=== PATIENT | male | born 1980 | race Caucasian/White ===

== ENCOUNTER → 2016-10-07 | Outpatient (CLI) | payer BC | LOC: MW.CHFP 09:14 | PROVIDERS: ATTEND Nurse Practitioner Family | DX: Z00.00 Encounter for general adult medical examination without abnormal findings (principal); M10.9 Gout, unspecified; R35.1 Nocturia; R19.7 Diarrhea, unspecified; G47.00 Insomnia, unspecified; R31.29 Other microscopic hematuria; Z98.890 Other specified postprocedural states | CPT/HCPCS: 36415; 84550 ==

== ENCOUNTER 2017-08-18 07:25 | Observation (INO) | payer BC ==
[~2017-08-18 07:25] MED LIST: Lactated Ringers 1,000 ML IV SCH
[2017-08-18] MEDS ORDERED: Oxymetazoline 0.05% Nasal Spray 15 ML Bottle ONE (07:36)
[2017-08-18] MEDS ORDERED: EPINEPHrine 1 MG/ML SDV ONE (07:36)
--- NOTE | 2017-08-18 08:09 | PCM.HPR ---
H & P Addendum review - H & P Addendum Review Date of Original H & P: 07/26/17 Date Reviewed: 08/18/17 Time Reviewed: 07:50 Patient was Examined: No Changes
[2017-08-18] MEDS ORDERED: fentaNYL 100 MCG/2 ML SDV ONE ×2 (08:36→10:25)
[2017-08-18] MEDS ORDERED: Propofol 200 MG/20 ML SDV ONE ×2 (08:36→09:50)
[2017-08-18] MEDS ORDERED: Lidocaine 2% 5 ML SDV ONE (08:36)
[2017-08-18] MEDS ORDERED: Midazolam 1 MG/ML 2 ML SDV ONE (08:36)
[2017-08-18] MEDS ORDERED: fentaNYL 250 MCG/5 ML SDV ONE (08:36)
[2017-08-18] MEDS ORDERED: Ondansetron 4 MG/2 ML SDV ONE (08:37)
[2017-08-18] MEDS ORDERED: Dexamethasone 4 MG/ML 5 ML MDV ONE (08:37)
--- NOTE | 2017-08-18 08:42 | PCM.PREANE ---
Preanesthetic Assessment - Procedure Proposed Procedure: Tonsillectomy - Anesthesia/Transfusion/Family Hx Anesthesia History: Prior Anesthesia Without Reaction Other Type of Anesthesia Reaction Comment: Denies any problem with 1 prior anesthesia Family History of Anesthesia Reaction: No Transfusion History: No Prior Transfusion(s) Intubation History: Unknown - Review of Systems General: No Symptoms Pulmonary: Other (breathing effects from hypertrophic tonsils) Cardiovascular: No Symptoms Gastrointestinal: No Symptoms Neurological: No Symptoms Other: Reports: None - Physical Assessment NPO Status Date: 08/17/17 NPO Status Time: 22:00 O2 Sat by Pulse Oximetry: 93 Respiratory Rate: 16 Vital Signs: Last Vital Signs Temp 99.0 F 08/18/17 07:30 Pulse 99 08/18/17 07:30 Resp 16 08/18/17 07:30 BP 168/88 H 08/18/17 07:30 Pulse Ox 93 L 08/18/17 07:30 Height: 5 ft 10 in Weight: 215 lb ASA Class: 2 Mental Status: Alert & Oriented x3 Airway Class: Mallampati = 1 Dentition: Reports: Normal Dentition Thyro-Mental Finger Breadths: 3 Mouth Opening Finger Breadths: 3 ROM/Head Extension: Full Lungs: Clear to Auscultation, Normal Respiratory Effort Cardiovascular: Regular Rate, Regular Rhythm, No Murmurs - Allergies Allergies/Adverse Reactions: Allergies Allergy/AdvReac Type Severity Reaction Status Date / Time diphenhydramine HCl Allergy Hives Verified 08/12/17 15:54 [From Benadryl] Penicillins Allergy Hives Verified 08/12/17 15:54 - Blood Blood Available: No Product(s) Available: None - Anesthesia Plan Pre-Op Medication Ordered: None - Acknowledgements Anesthesia Type Planned: General Anesthesia Pt an Appropriate Candidate for the Planned Anesthesia: Yes Alternatives and Risks of Anesthesia Discussed w Pt/Guardian: Yes Pt/Guardian Understands and Agrees with Anesthesia Plan: Yes PreAnesthesia Questionnaire - Past Health History Medical/Surgical History: Denies Medical/Surgical History HEENT History: Reports: Other (See Below) Other HEENT History: wears glasses Gastrointestinal History: Reports: Chronic Diarrhea, GERD Musculoskeletal History: Reports: Gout Psychiatric History: Reports: Anxiety Endocrine/Metabolic History: Reports: Obesity/BMI 30+ - Past Surgical History GI Surgical History: Reports: Cholecystectomy - SUBSTANCE USE Smoking Status *Q: Former Smoker Tobacco Use Within Last Twelve Months: No Second Hand Smoke Exposure: No Days Per Week of Alcohol Use: 0 Number of Drinks Per Day: 0 Total Drinks Per Week: 0 Recreational Drug Use History: No - HOME MEDS Home Medications: Home Meds Omeprazole Magnesium [Prilosec Otc] 20 mg PO DAILY 10/10/13 [History] Allopurinol [Zyloprim] 300 mg PO DAILY 08/12/17 [History] - CURRENT (IN HOUSE) MEDS Current Meds: Current Medications Lactated Ringer's (Ringers, Lactated) 1,000 mls @ 125 mls/hr IV ASDIRECTED [facility] Last Admin: 08/18/17 08:07 Dose: 125 mls/hr Discontinued Medications Epinephrine HCl (Adrenalin) Confirm Administered Dose 1 mg .ROUTE .STK-MED ONE Stop: 08/18/17 07:37 Oxymetazoline HCl (Afrin Original 0.05% Nasal [place]) Confirm Administered Dose 15 ml .ROUTE .STK-MED ONE Stop: 08/18/17 07:37
[2017-08-18] MEDS ORDERED: HYDROmorphone 2 MG/ML SDV ONE (09:23)
--- NOTE | 2017-08-18 09:49 | PCM.OPNOTE ---
- General Post-Op/Procedure Note Condition: Good Free Text/Narrative:: Preoperative Diagnosis: Snoring ,sleep disordered breathing, tonsillar hypertrophy Postoperative Diagnosis:Snoring ,sleep disordered breathing, tonsillar hypertrophy Procedure: Bilateral tonsillectomy Surgeon: Catrina Landaverde MD Anesthesia: GA Anesthesiologist: Tripp Fuentes CRNA Date of procedure: 08/18/2017 Indications: Snoring ,sleep disordered breathing, tonsillar hypertrophy Findings: Bilateral Gr 4 tonsils prolapsing into hypopharynx ++ Operation Details: An informed consent was obtained. A time out was performed and the patient was brought back to the operating room. General anesthesia was administered with an endotracheal tube. The table was turned 90 away from the anesthesia cart. Patient was appropriately positioned on the operating table. An appropriately sized Caesar Landry mouth gag was positioned and suspended from a Patterson stand. The right tonsil was grasped with a Aiden Brown tonsil holding forceps, upper pole dissected with bipolar forceps at setting of 10 [place]. The tonsillar fossa was packed with an oxymetazoline 0.05% soaked 2 x 2 gauze. The left tonsil was then similarly dissected and fossa packed with an oxymetazoline 0.05% soaked 2 x 2 gauze. Hemostasis was achieved bilaterally with the bipolar cautery at a setting of 10 W. Bilateral fossae were irrigated with warm saline and hemostasis was ensured. Postnasal space was suctioned clear. This concluded the procedure. Mouth gag was removed the oral cavity was inspected. Lips gums and teeth were intact. Lubricating jelly was applied to the lips. The patient was turned over to the anesthesiologist for recovery. Specimens: Bilateral tonsils IV fluids: 1200 ml Blood loss : 15 ml Blood products: nil Disposition: PACU for recovery Follow up: In 1 week
[2017-08-18] MEDS ORDERED: HYDROmorphone 2 MG/ML Syringe IVPUSH ONE (10:28)
[2017-08-18] MEDS ORDERED: oxyCODONE 5 MG Tab PO PRN ×2 (11:14→16:32)
[2017-08-18] MEDS ORDERED: Acetaminophen 1,000 MG in Premix Bag 1 BAG IV ONE (11:14)
[2017-08-18] MEDS ORDERED: Ibuprofen Susp 100 MG/5 ML 10 ML UD Cup PO SCH ×2 (11:15→22:00)
[2017-08-18] MEDS ORDERED: Naloxone 0.4 MG/ML Syringe ONE (11:28)
[2017-08-18] MEDS: fentaNYL 100 MCG/2 ML SDV IVPUSH PRN ×2 (12:19→12:34)
--- NOTE | 2017-08-18 12:39 | PCM.POSTAN ---
POST ANESTHESIA ASSESSMENT - MENTAL STATUS Mental Status: Alert, Oriented Free Text/Narrative:: s/p large tonsils removal; suggested he may be "sore" due to the surface area involved. - VITAL SIGNS Pulse Rate: 64 SaO2: 96 (NC O2 at 5l/m) Resp Rate: 13 Blood Pressure: 150/86 - RESPIRATORY Respiratory Status: Respiratory Rate WNL, Airway Patent, O2 Saturation Stable - CARDIOVASCULAR CV Status: Pulse Rate WNL, Blood Pressure Stable - GASTROINTESTINAL GI Status: No Symptoms - PAIN Pain Score: 5 (w/narcotic assist; mild pruritis) - POST OP HYDRATION Hydration Status: Adequate & Stable - OBSERVATIONS Free Text/Narrative:: Reassess for O2 sat and comfort level. may need Oxygen supplement for awhile in Phase II.
--- NOTE | 2017-08-18 16:36 | PCM.SN ---
- Free Text/Narrative Note: The patient was maintianing saturation to 92% RA and 88% while asleep. His baseline saturation was also at 93% on admission ( I was made aware after surgery while rounding post operatively) O/E- patient awake and conscious Saturations 93% RA and 97 % on deep breathing Rest sats - stable Pain - controlled Plan: Case discussed with Dr Ayala and Dr Etienne Will keep overnight for observation Continuous pulse oximetry Analgesia CXR Discussed with patient Will need investigation for baseline low SpO2 by PCP
[2017-08-18] MEDS ORDERED: Ibuprofen 400 MG Tab PO SCH (16:45)
[2017-08-18] MEDS: Acetaminophen 325 MG Tab PO SCH ×2 (17:52→22:16)
[2017-08-18] MEDS: Ibuprofen 400 MG Tab PO SCH (21:04)
[2017-08-19] MEDS: Acetaminophen 325 MG Tab PO SCH ×2 (04:21→10:10)
[2017-08-19] MEDS: Ibuprofen 400 MG Tab PO SCH (06:14)
--- NOTE | 2017-08-19 07:34 | PCM48HPAN ---
Post Anesthesia Note - EVALUATION WITHIN 48HRS OF ANESTHETIC Vital Signs in Normal Range: Yes Patient Participated in Evaluation: Yes Respiratory Function Stable: Yes Airway Patent: Yes Cardiovascular Function Stable: Yes Hydration Status Stable: Yes Pain Control Satisfactory: Yes Nausea and Vomiting Control Satisfactory: Yes Mental Status Recovered: Yes Pulse Rate: 64 Resp Rate: 18 Blood Pressure: 150/86 - COMMENTS/OBSERVATIONS Free Text/Narrative:: spent the night due to decreased sats when fall asleep probably due to preoperative issues. No Anesthesia complications.
[2017-08-19] MEDS ORDERED: Albuterol/Ipratropium 3.0-0.5 MG/3 ML Neb Soln NEB ONE (08:55)
--- NOTE | 2017-08-19 09:07 | PCM.SN ---
- Free Text/Narrative Note: Discussed this patient with Dr. Landaverde. Examined and discussed concerns with patient. His SpO2 is 93% on O2 via NC, RR 14, and HR 70. No wheezing can be heard on auscultation. He increases his sat's with inspirometry or just deep breaths. He had some full day exposure to a chemical indoors days prior to surgery which may have contributed to intrinsic lung function; but this was not discovered until his post op course. Consequently a single duoneb nebulization treatment will be done this AM to see if any benefit occurs. Dr. Landaverde agreed and OKed my order for same. Further orders and care will be per Dr. Landaverde.
--- NOTE | 2017-08-19 09:26 | CR ---
EXAM DATE: 08/18/17 PATIENT'S AGE: 37 Patient: BARTOLO MURGUIA Facility: [place], [place] Site . Site : [id number] Study: XRay Chest [id number]/28/2018 4:46:27 PM Ordering Physician: Akhil Fritz Final Report: INDICATION: Hypoxia post op TECHNIQUE: Chest 1 view COMPARISON: None FINDINGS: Cardiovascular and mediastinum: Heart size and vasculature are normal in caliber and appearance. Mediastinum is within normal limits. Lungs and pleural space: No focal consolidation. No sign of pleural effusion. No pneumothorax. Bones and soft tissues: No significant findings. IMPRESSION: No acute cardiopulmonary disease. Dictated by Miko Lowe MD @ 08/18/2017 4:53:26 PM Dictated by: Miko Lowe MD @ 08/18/2017 16:53:58 (Electronic Signature) Report Signed by Proxy. [facility]ENTERHanh
--- NOTE | 2017-08-19 09:52 | PCM.SN ---
- Free Text/Narrative Note: Patient was in observation overnight; required oxygen while asleep; when awake - maintaining sats at 93/93% on room air; also deep inspiration improves saturation. CXR from yesterday - normal Rest observations stable and pain controlled Plan: Case discussed with anesthesiologist Dr Ayala ( please see his note) Incentive spirometry Will likely require Pulmonary consult for baseline hypoxia Will request hospitalist to kindly evaluate for this and advice for discharge / any further investigations required Discussed with patient When discharged - analgesia regimen discussed including limiting use of PO opioid; he agrees and understands
--- NOTE | 2017-08-19 10:52 | PCM.CONS ---
H&P History of Present Illness - General Admit Problem/Dx: Admission Diagnosis/Problem Admission Diagnosis/Problem Snoring Throat Pain Score (Numeric/FACES): 4 - Related Data Allergies/Adverse Reactions: Allergies Allergy/AdvReac Type Severity Reaction Status Date / Time diphenhydramine HCl Allergy Hives Verified 08/12/17 15:54 [From Benadryl] Penicillins Allergy Hives Verified 08/12/17 15:54 Home Medications: Home Meds Omeprazole Magnesium [Prilosec Otc] 20 mg PO DAILY 10/10/13 [History] Allopurinol [Zyloprim] 300 mg PO DAILY 08/12/17 [History] Past Medical History - Past Health History Medical/Surgical History: Denies Medical/Surgical History HEENT History: Reports: Other (See Below) Other HEENT History: wears glasses Gastrointestinal History: Reports: Chronic Diarrhea, GERD Musculoskeletal History: Reports: Gout Psychiatric History: Reports: Anxiety Endocrine/Metabolic History: Reports: Obesity/BMI 30+ - Past Surgical History GI Surgical History: Reports: Cholecystectomy Social & Family History - Tobacco Use Smoking Status *Q: Former Smoker Years of Tobacco use: 7 Used Tobacco, but Quit: Yes Month/Year Tobacco Last Used: 2011 Tobacco Use Comment: quit 1.5 years ago Second Hand Smoke Exposure: No - Alcohol Use Days Per Week of Alcohol Use: 0 Number of Drinks Per Day: 0 Total Drinks Per Week: 0 - Recreational Drug Use Recreational Drug Use: No Drug Use in Last 12 Months: No Exam - Vital Signs Vital Signs: Last Vital Signs Temp 36.0 C 08/19/17 08:00 Pulse 85 08/19/17 08:00 Resp 22 H 08/19/17 08:00 BP 159/79 H 08/19/17 08:00 Pulse Ox 97 08/19/17 09:08 Weight: 97.522 kg Consult PN Assessment/Plan Procedures: Procedures ASSAY OF BLOOD/URIC ACID (10/07/16) COMPLETE CBC W/AUTO DIFF WBC (09/09/13) COMPREHEN METABOLIC PANEL (09/09/13) DIAGNOSTIC COLONOSCOPY (10/12/13) ECHO EXAM OF ABDOMEN (09/22/13) EGD BIOPSY SINGLE/MULTIPLE (10/12/13) EMERGENCY DEPT VISIT (11/03/13) EMERGENCY DEPT VISIT (11/03/13) EMERGENCY DEPT VISIT (09/09/13) EMERGENCY DEPT VISIT (09/09/13) HEPATOBIL SYST IMAGE W/DRUG (09/22/13) METABOLIC PANEL TOTAL CA (03/31/16) ROUTINE VENIPUNCTURE (10/07/16) TISSUE EXAM BY PATHOLOGIST (10/12/13) URINALYSIS AUTO W/SCOPE (03/31/16)
== END 2017-08-19 11:40 | disposition home or self-care (01) ==
LOC: MW.SDS 07:25 → MW.MS 16:30
PROVIDERS: ADMIT Otolaryngology; ATTEND Otolaryngology
DX: J35.1 Hypertrophy of tonsils (principal); G47.00 Insomnia, unspecified; G47.33 Obstructive sleep apnea (adult) (pediatric); K21.9 Gastro-esophageal reflux disease without esophagitis; F45.8 Other somatoform disorders; F41.9 Anxiety disorder, unspecified; E66.9 Obesity, unspecified; M10.9 Gout, unspecified; Z88.8 Allergy status to other drugs, medicaments and biological substances; Z88.0 Allergy status to penicillin; Z79.899 Other long term (current) drug therapy; Z90.49 Acquired absence of other specified parts of digestive tract; Z87.891 Personal history of nicotine dependence; Z68.30 Body mass index [BMI] 30.0-30.9, adult
CPT/HCPCS: 42826; 71045; 88304; 94640; A9270; G0378; J1100; J1170; J2250; J2405; J3010; J7120; 00170; J0171; J2704

== ENCOUNTER 2017-08-20 02:47 | Day surgery (SDC) | payer BC ==
[2017-08-20] MEDS ORDERED: Sodium Chloride 0.9% 1,000 ML IV ONE (02:55)
--- NOTE | 2017-08-20 03:04 | EDM.PDOC ---
ED HPI GENERAL MEDICAL PROBLEM - General Chief Complaint: ENT Problem Stated Complaint: COUGHING UP BLOOD, RECENT SURGERY Time Seen by Provider: 08/20/17 03:02 - History of Present Illness INITIAL COMMENTS - FREE TEXT/NARRATIVE: HISTORY AND PHYSICAL: History of present illness: Patient 37-year-old male status post tonsillectomy on Wednesday who presents with a concern of spitting up intermittently blood clots and bleeding tonight denies chest pain shortness breath or other concern Review of systems: As per history of present illness and below otherwise all systems reviewed and negative. Past medical history: As per history of present illness and as reviewed below otherwise noncontributory. Surgical history: As per history of present illness and as reviewed below otherwise noncontributory. Social history: No reported history of drug or alcohol abuse. Family history: As per history of present illness and as reviewed below otherwise noncontributory. Physical exam: HEENT: Atraumatic, normocephalic, pupils reactive, negative for conjunctival pallor or scleral icterus, mucous membranes moist, throat sutures in place small clots noted in the suture line with small oozing. neck supple, nontender, trachea midline. Lungs: Clear to auscultation, breath sounds equal bilaterally, chest nontender. Heart: S1S2, regular, negative for clicks, rubs, or JVD. Abdomen: Soft, nondistended, nontender. Negative for masses or hepatosplenomegaly. Negative for costovertebral tenderness. Pelvis: Stable nontender. Genitourinary: Deferred. Rectal: Deferred. Extremities: Atraumatic, negative for cords or calf pain. Neurovascular unremarkable. Neuro: Awake, alert, oriented. Cranial nerves II through XII unremarkable. Cerebellum unremarkable. Motor and sensory unremarkable throughout. Exam nonfocal. Diagnostics: CBC PT/INR Therapeutics: Saline 1 L bolus Impression: #1 observation status post tonsillectomy with postoperative bleeding Definitive disposition and diagnosis as appropriate pending reevaluation and review of above. - Related Data Allergies Allergy/AdvReac Type Severity Reaction Status Date / Time diphenhydramine HCl Allergy Hives Verified 08/20/17 02:54 [From Benadryl] Penicillins Allergy Hives Verified 08/20/17 02:54 Home Meds: Home Meds Omeprazole Magnesium [Prilosec Otc] 20 mg PO DAILY 10/10/13 [History] Allopurinol [Zyloprim] 300 mg PO DAILY 08/12/17 [History] Past Medical History - Past Health History Medical/Surgical History: Denies Medical/Surgical History HEENT History: Reports: Other (See Below) Other HEENT History: wears glasses Cardiovascular History: Reports: None Respiratory History: Reports: None Gastrointestinal History: Reports: Chronic Diarrhea, GERD Genitourinary History: Reports: None Musculoskeletal History: Reports: Gout Neurological History: Reports: None Psychiatric History: Reports: Anxiety Endocrine/Metabolic History: Reports: Obesity/BMI 30+ Hematologic History: Reports: None Dermatologic History: Reports: None - Infectious Disease History Infectious Disease History: Reports: Chicken Pox - Past Surgical History HEENT Surgical History: Reports: Tonsillectomy GI Surgical History: Reports: Cholecystectomy Social & Family History - Family History Family Medical History: Noncontributory - Tobacco Use Smoking Status *Q: Never Smoker Years of Tobacco use: 7 Used Tobacco, but Quit: Yes Month/Year Tobacco Last Used: 2011 Second Hand Smoke Exposure: No - Alcohol Use Days Per Week of Alcohol Use: 0 Number of Drinks Per Day: 0 Total Drinks Per Week: 0 - Recreational Drug Use Recreational Drug Use: No Drug Use in Last 12 Months: No ED ROS GENERAL - Review of Systems Review Of Systems: ROS reveals no pertinent complaints other than HPI. ED EXAM, GENERAL - Physical Exam Exam: See Below (See dictation) Course - Vital Signs Last Recorded V/S: Last Vital Signs Temp 37.2 C 08/20/17 06:05 Pulse 79 08/20/17 06:05 Resp 16 08/20/17 06:05 BP 141/70 H 08/20/17 06:05 Pulse Ox 94 L 08/20/17 06:05 - Orders/Labs/Meds Orders: Active Orders 24 hr Category Date Time Status Communication Order [RC] PRN Care 08/20/17 05:42 Active Notify Provider Vital Signs [RC] PRN Care 08/20/17 05:39 Active Verify Patient Consent Obtain [RC] ASDIRECTED Care 08/20/17 03:34 Active NPO [Nothing Per Oral Diet] [DIET] Diet 08/20/17 Breakfast Active CBC WITH AUTO DIFF [HEME] Routine Lab 08/20/17 08:00 Ordered RED BLOOD CELLS LP [BBK] Stat Lab 08/20/17 03:45 Results TYPE AND SCREEN [BBK] Stat Lab 08/20/17 03:45 Results Acetaminophen [Ofirmev] 1,000 mg Med 08/20/17 07:30 Active Premix Bag 1 bag IV NOW Sodium Chloride 0.9% [Normal Saline] 1,000 ml Med 08/20/17 04:00 Active IV ASDIRECTED Sodium Chloride 0.9% [Normal Saline] 1,000 ml Med 08/20/17 06:10 Active IV ASDIRECTED Transfuse Red Blood Cells [COMM] Routine Oth 08/20/17 03:32 Ordered Resuscitation Status Routine Resus Stat 08/20/17 05:39 Ordered Medication Orders Sodium Chloride (Normal Saline) 1,000 mls @ 999 mls/hr IV ASDIRECTED ON LICENSE OF [facility] Last Admin: 08/20/17 04:02 Dose: 999 mls/hr Acetaminophen 1,000 mg/ Premix 100 mls @ 400 mls/hr IV NOW ONE Stop: 08/20/17 07:44 Last Admin: 08/20/17 06:32 Dose: 400 mls/hr Sodium Chloride (Normal Saline) 1,000 mls @ 140 mls/hr IV ASDIRECTED ON LICENSE OF [facility] Last Admin: 08/20/17 06:11 Dose: 140 mls/hr Labs: Laboratory Tests 08/20/17 08/20/17 08/20/17 Range/Units 02:50 02:50 02:50 WBC 15.64 H (4.0-11.0) K/uL RBC 4.59 (4.50-5.90) M/uL Hgb 15.0 (13.0-17.0) g/dL Hct 43.3 (38.0-50.0) % MCV 94.3 (80.0-98.0) fL MCH 32.7 H (27.0-32.0) pg MCHC 34.6 (31.0-37.0) g/dL RDW Std Deviation 43.6 (28.0-62.0) fl RDW Coeff of William 13 (11.0-15.0) % Plt Count 184 (150-400) K/uL MPV 11.80 (7.40-12.00) fL Neut % (Auto) 78.9 (48.0-80.0) % Lymph % (Auto) 15.4 L (16.0-40.0) % [place] % (Auto) 5.5 (0.0-15.0) % Eos % (Auto) 0.1 (0.0-7.0) % Baso % (Auto) 0.1 (0.0-1.5) % Neut # (Auto) 12.3 H (1.4-5.7) K/uL Lymph # (Auto) 2.4 (0.6-2.4) K/uL [place] # (Auto) 0.9 H (0.0-0.8) K/uL Eos # (Auto) 0.0 (0.0-0.7) K/uL Baso # (Auto) 0.0 (0.0-0.1) K/uL Nucleated RBC % 0.0 /100WBC Nucleated RBCs # 0 K/uL INR 1.02 Sodium 142 (136-148) mmol/L Potassium 3.4 L (3.5-5.1) mmol/L Chloride 106 (98-107) mmol/L Carbon Dioxide 26.5 (21.0-32.0) mmol/L BUN 19 H (7.0-18.0) mg/dL Creatinine 1.0 (0.8-1.3) mg/dL Est Cr Clr Drug Dosing 103.42 mL/min Estimated GFR (MDRD) > 60.0 ml/min Glucose 109 H (74-106) mg/dL Calcium 8.8 (8.5-10.1) mg/dL Total Bilirubin 0.6 (0.2-1.0) mg/dL AST 25 (15-37) IU/L ALT 47 (14-63) IU/L Alkaline Phosphatase 61 (46-116) U/L Total Protein 7.3 (6.4-8.2) g/dL Albumin 3.3 L (3.4-5.0) g/dL Globulin 4.0 H (2.0-3.5) g/dL Albumin/Globulin Ratio 0.8 L (1.3-2.8) Blood Type Antibody Screen Crossmatch 08/20/17 Range/Units 03:45 WBC (4.0-11.0) K/uL RBC (4.50-5.90) M/uL Hgb (13.0-17.0) g/dL Hct (38.0-50.0) % MCV (80.0-98.0) fL MCH (27.0-32.0) pg MCHC (31.0-37.0) g/dL RDW Std Deviation (28.0-62.0) fl RDW Coeff of William (11.0-15.0) % Plt Count (150-400) K/uL MPV (7.40-12.00) fL Neut % (Auto) (48.0-80.0) % Lymph % (Auto) (16.0-40.0) % [place] % (Auto) (0.0-15.0) % Eos % (Auto) (0.0-7.0) % Baso % (Auto) (0.0-1.5) % Neut # (Auto) (1.4-5.7) K/uL Lymph # (Auto) (0.6-2.4) K/uL [place] # (Auto) (0.0-0.8) K/uL Eos # (Auto) (0.0-0.7) K/uL Baso # (Auto) (0.0-0.1) K/uL Nucleated RBC % /100WBC Nucleated RBCs # K/uL INR Sodium (136-148) mmol/L Potassium (3.5-5.1) mmol/L Chloride (98-107) mmol/L Carbon Dioxide (21.0-32.0) mmol/L BUN (7.0-18.0) mg/dL Creatinine (0.8-1.3) mg/dL Est Cr Clr Drug Dosing mL/min Estimated GFR (MDRD) ml/min Glucose (74-106) mg/dL Calcium (8.5-10.1) mg/dL Total Bilirubin (0.2-1.0) mg/dL AST (15-37) IU/L ALT (14-63) IU/L Alkaline Phosphatase (46-116) U/L Total Protein (6.4-8.2) g/dL Albumin (3.4-5.0) g/dL Globulin (2.0-3.5) g/dL Albumin/Globulin Ratio (1.3-2.8) Blood Type O POSITIVE Antibody Screen NEGATIVE Crossmatch See Detail Meds: Medications Generic Name Dose Route Start Last Admin Trade Name Freq PRN Reason Stop Dose Admin Sodium Chloride 1,000 mls @ 999 mls/hr 08/20/17 04:00 08/20/17 04:02 Normal Saline IV 999 mls/hr ASDIRECTED STEPHEN Administration Acetaminophen 1,000 mg/ Premix 100 mls @ 400 mls/hr 08/20/17 07:30 08/20/17 06:32 IV 08/20/17 07:44 400 mls/hr NOW ONE Administration Sodium Chloride 1,000 mls @ 140 mls/hr 08/20/17 06:10 08/20/17 06:11 Normal Saline IV 140 mls/hr ASDIRECTED STEPHEN Administration Discontinued Medications Generic Name Dose Route Start Last Admin Trade Name Lawrence PRN Reason Stop Dose Admin Dexamethasone Confirm 08/20/17 06:13 Dexamethasone Administered 08/20/17 06:14 Dose 20 mg .ROUTE .STK-MED ONE Epinephrine HCl Confirm 08/20/17 03:55 Adrenalin Administered 08/20/17 03:56 Dose 1 mg .ROUTE .STK-MED ONE Fentanyl Confirm 08/20/17 04:02 Sublimaze Administered 08/20/17 04:03 Dose 100 mcg .ROUTE .STK-MED ONE Fentanyl Confirm 08/20/17 04:45 Sublimaze Administered 08/20/17 04:46 Dose 100 mcg .ROUTE .STK-MED ONE Glycopyrrolate Confirm 08/20/17 04:58 Robinul Administered 08/20/17 04:59 Dose 0.4 mg .ROUTE .STK-MED ONE Sodium Chloride 1,000 mls @ 999 mls/hr 08/20/17 02:55 08/20/17 02:50 Normal Saline IV 08/20/17 03:55 999 mls/hr .Bolus ONE Administration Lidocaine Confirm 08/20/17 04:01 Xylocaine-Mpf 2% Administered 08/20/17 04:02 Dose 5 ml .ROUTE .STK-MED ONE Midazolam HCl Confirm 08/20/17 04:02 Versed 1 Mg/Ml Administered 08/20/17 04:03 Dose 2 mg .ROUTE .STK-MED ONE Neostigmine Methylsulfate Confirm 08/20/17 04:58 Neostigmine Administered 08/20/17 04:59 Dose 5 mg .ROUTE .STK-MED ONE Ondansetron HCl Confirm 08/20/17 05:15 Zofran Administered 08/20/17 05:16 Dose 4 mg .ROUTE .STK-MED ONE Oxymetazoline HCl Confirm 08/20/17 03:55 Afrin Original 0.05% Nasal [place] Administered 08/20/17 03:56 Dose 15 ml .ROUTE .STK-MED ONE Phenylephrine HCl Confirm 08/20/17 04:44 Phenylephrine In Ns 100 Mcg/Ml Administered 08/20/17 04:45 Dose 1 mg .ROUTE .STK-MED ONE Propofol Confirm 08/20/17 04:02 Diprivan 20 Ml Administered 08/20/17 04:03 Dose 200 mg .ROUTE .STK-MED ONE Rocuronium [place] Confirm 08/20/17 04:01 Zemuron Administered 08/20/17 04:02 Dose 100 mg .ROUTE .STK-MED ONE Succinylcholine Chloride Confirm 08/20/17 04:06 Quelicin Administered 08/20/17 04:07 Dose 200 mg .ROUTE .STK-MED ONE Departure - Departure Time of Disposition: 06:37 Disposition: Refer to Observation Condition: Good Clinical Impression: Postoperative haemorrhage of tonsil - Discharge Information
[2017-08-20 03:20] LABS: CHLORIDE,CL 106 mmol/L (98-107); SODIUM,NA 142 mmol/L (136-148)
--- NOTE | 2017-08-20 03:45 | PCM.CONS ---
H&P History of Present Illness - General Date of Service: 08/20/17 - History of Present Illness Initial Comments - Free Text/Narative: s/p tonsillectomy day 2 Woke up this am at 2 am - coughing and spitting up blood; had to call the ambulance to get to the hospital; I was called by ER physician to evaluate - Related Data Allergies/Adverse Reactions: Allergies Allergy/AdvReac Type Severity Reaction Status Date / Time diphenhydramine HCl Allergy Hives Verified 08/20/17 02:54 [From Benadryl] Penicillins Allergy Hives Verified 08/20/17 02:54 Home Medications: Home Meds Omeprazole Magnesium [Prilosec Otc] 20 mg PO DAILY 10/10/13 [History] Allopurinol [Zyloprim] 300 mg PO DAILY 08/12/17 [History] Past Medical History - Past Health History Medical/Surgical History: Denies Medical/Surgical History HEENT History: Reports: Other (See Below) Other HEENT History: wears glasses Cardiovascular History: Reports: None Respiratory History: Reports: None Gastrointestinal History: Reports: Chronic Diarrhea, GERD Genitourinary History: Reports: None Musculoskeletal History: Reports: Gout Neurological History: Reports: None Psychiatric History: Reports: Anxiety Endocrine/Metabolic History: Reports: Obesity/BMI 30+ Hematologic History: Reports: None Dermatologic History: Reports: None - Infectious Disease History Infectious Disease History: Reports: Chicken Pox - Past Surgical History HEENT Surgical History: Reports: Tonsillectomy GI Surgical History: Reports: Cholecystectomy Social & Family History - Family History Family Medical History: Noncontributory - Tobacco Use Smoking Status *Q: Never Smoker Years of Tobacco use: 7 Used Tobacco, but Quit: Yes Month/Year Tobacco Last Used: 2011 Second Hand Smoke Exposure: No - Alcohol Use Days Per Week of Alcohol Use: 0 Number of Drinks Per Day: 0 Total Drinks Per Week: 0 - Recreational Drug Use Recreational Drug Use: No Drug Use in Last 12 Months: No H&P Review of Systems - Review of Systems: Review Of Systems: ROS reveals no pertinent complaints other than HPI. Exam - Exam Exam: See Below - Vital Signs Vital Signs: Last Vital Signs Temp 36.7 C 08/20/17 02:54 Pulse 115 H 08/20/17 03:22 Resp 18 08/20/17 03:22 BP 147/94 H 08/20/17 03:22 Pulse Ox 96 08/20/17 03:22 Weight: 99.79 kg - Exam General: Alert, Oriented, Mild Distress HEENT: Other Neck: Supple Lungs: Clear to Auscultation, Normal Respiratory Effort Cardiovascular: Regular Rate, Regular Rhythm Psychiatric: Alert, Anxious Physical Exam Comments:: Sitting up in bed and actively spitting up bright red blood Oral cavity / oropharynx - blood ++; unable to visualize the bleeding source / point - Patient Data Lab Results Last 24 hrs: Laboratory Results - last 24 hr 08/20/17 08/20/17 08/20/17 Range/Units 02:50 02:50 02:50 WBC 15.64 H (4.0-11.0) K/uL RBC 4.59 (4.50-5.90) M/uL Hgb 15.0 (13.0-17.0) g/dL Hct 43.3 (38.0-50.0) % MCV 94.3 (80.0-98.0) fL MCH 32.7 H (27.0-32.0) pg MCHC 34.6 (31.0-37.0) g/dL RDW Std Deviation 43.6 (28.0-62.0) fl RDW Coeff of William 13 (11.0-15.0) % Plt Count 184 (150-400) K/uL MPV 11.80 (7.40-12.00) fL Neut % (Auto) 78.9 (48.0-80.0) % Lymph % (Auto) 15.4 L (16.0-40.0) % [place] % (Auto) 5.5 (0.0-15.0) % Eos % (Auto) 0.1 (0.0-7.0) % Baso % (Auto) 0.1 (0.0-1.5) % Neut # (Auto) 12.3 H (1.4-5.7) K/uL Lymph # (Auto) 2.4 (0.6-2.4) K/uL [place] # (Auto) 0.9 H (0.0-0.8) K/uL Eos # (Auto) 0.0 (0.0-0.7) K/uL Baso # (Auto) 0.0 (0.0-0.1) K/uL Nucleated RBC % 0.0 /100WBC Nucleated RBCs # 0 K/uL INR 1.02 Sodium 142 (136-148) mmol/L Potassium 3.4 L (3.5-5.1) mmol/L Chloride 106 (98-107) mmol/L Carbon Dioxide 26.5 (21.0-32.0) mmol/L BUN 19 H (7.0-18.0) mg/dL Creatinine 1.0 (0.8-1.3) mg/dL Est Cr Clr Drug Dosing 103.42 mL/min Estimated GFR (MDRD) > 60.0 ml/min Glucose 109 H (74-106) mg/dL Calcium 8.8 (8.5-10.1) mg/dL Total Bilirubin 0.6 (0.2-1.0) mg/dL AST 25 (15-37) IU/L ALT 47 (14-63) IU/L Alkaline Phosphatase 61 (46-116) U/L Total Protein 7.3 (6.4-8.2) g/dL Albumin 3.3 L (3.4-5.0) g/dL Globulin 4.0 H (2.0-3.5) g/dL Albumin/Globulin Ratio 0.8 L (1.3-2.8) Result Diagrams: 08/20/17 02:50 08/20/17 02:50 Consult PN Assessment/Plan POD#: 2 Procedures: Procedures ASSAY OF BLOOD/URIC ACID (10/07/16) COMPLETE CBC W/AUTO DIFF WBC (09/09/13) COMPREHEN METABOLIC PANEL (09/09/13) DIAGNOSTIC COLONOSCOPY (10/12/13) ECHO EXAM OF ABDOMEN (09/22/13) EGD BIOPSY SINGLE/MULTIPLE (10/12/13) EMERGENCY DEPT VISIT (11/03/13) EMERGENCY DEPT VISIT (11/03/13) EMERGENCY DEPT VISIT (09/09/13) EMERGENCY DEPT VISIT (09/09/13) HEPATOBIL SYST IMAGE W/DRUG (09/22/13) METABOLIC PANEL TOTAL CA (03/31/16) ROUTINE VENIPUNCTURE (10/07/16) TISSUE EXAM BY PATHOLOGIST (10/12/13) URINALYSIS AUTO W/SCOPE (03/31/16) (1) Hemorrhage, tonsil, postoperative SNOMED Code(s): 107739926, 600284794 Code(s): JXZ2150 - Current Visit: Yes Problem List Initiated/Reviewed/Updated: Yes My Orders Last 24 Hours: My Active Orders 08/20/17 03:32 RED BLOOD CELLS LP [BBK] Stat TYPE AND SCREEN [BBK] Stat Transfuse Red Blood Cells [COMM] Routine 08/20/17 03:34 Verify Patient Consent Obtain [RC] ASDIRECTED Plan: - IV fluids - CBC, INR, group and save 2 units - Take back to OR for control of hemorrhage - Consent obtained and team informed - NPO since 9 pm
[2017-08-20] MEDS ORDERED: EPINEPHrine 1 MG/ML SDV ONE (03:55)
[2017-08-20] MEDS ORDERED: Oxymetazoline 0.05% Nasal Spray 15 ML Bottle ONE (03:55)
[2017-08-20] MEDS ORDERED: Sodium Chloride 0.9% 1,000 ML IV SCH ×2 (04:00→06:10)
[2017-08-20] MEDS ORDERED: Rocuronium 10 MG/ML 10 ML Syringe ONE (04:01)
[2017-08-20] MEDS ORDERED: Lidocaine 2% 5 ML SDV ONE (04:01)
[2017-08-20] MEDS ORDERED: Midazolam 1 MG/ML 2 ML SDV ONE (04:02)
[2017-08-20] MEDS ORDERED: fentaNYL 100 MCG/2 ML SDV ONE ×2 (04:02→04:45)
[2017-08-20] MEDS ORDERED: Propofol 200 MG/20 ML SDV ONE (04:02)
[2017-08-20] MEDS ORDERED: Succinylcholine 200 MG/10 ML MDV ONE (04:06)
[2017-08-20] MEDS ORDERED: Phenylephrine/Normal Saline 100 MCG/ML 10 ML Syringe ONE (04:44)
[2017-08-20] MEDS ORDERED: Glycopyrrolate 0.2 MG/ML SDV ONE (04:58)
[2017-08-20] MEDS ORDERED: Neostigmine Methylsulfate 1 MG/ML 5 ML Syringe ONE (04:58)
--- NOTE | 2017-08-20 05:08 | PCM.PREANE ---
Preanesthetic Assessment - Procedure Proposed Procedure: tonsil bed bleed post tonsillectomy - Anesthesia/Transfusion/Family Hx Anesthesia History: Prior Anesthesia Without Reaction Other Type of Anesthesia Reaction Comment: Denies any problem with 1 prior anesthesia Family History of Anesthesia Reaction: No Transfusion History: No Prior Transfusion(s) Intubation History: Unknown Additional History: Patient known to me from two days ago when his large tonsils were removed. Presented to [facility] with active bleeding and clots from his mouth. Stable vitals. For emergent airway/anesthetic and hemostasis by Dr. Landaverde. - Review of Systems General: Other (anxiety) Pulmonary: Hemoptysis Cardiovascular: No Symptoms Gastrointestinal: No Symptoms Neurological: No Symptoms Other: Reports: Anxiety - Physical Assessment NPO Status Date: 08/19/17 NPO Status Time: 21:00 O2 Sat by Pulse Oximetry: 93 Respiratory Rate: 19 Vital Signs: Last Vital Signs Temp 98.1 F 08/20/17 02:54 Pulse 130 H 08/20/17 03:50 Resp 19 08/20/17 03:50 BP 152/92 H 08/20/17 03:50 Pulse Ox 93 L 08/20/17 03:50 Height: 5 ft 10 in Weight: 220 lb ASA Class: 2E Mental Status: Alert & Oriented x3 Airway Class: Mallampati = 1 Dentition: Reports: Normal Dentition Thyro-Mental Finger Breadths: 4 Mouth Opening Finger Breadths: 3 ROM/Head Extension: Limited/Partial Lungs: Clear to Auscultation, Normal Respiratory Effort Cardiovascular: Regular Rate, No Murmurs - Lab Values: Laboratory Last Values WBC 15.64 K/uL (4.0-11.0) H 08/20/17 02:50 RBC 4.59 M/uL (4.50-5.90) 08/20/17 02:50 Hgb 15.0 g/dL (13.0-17.0) 08/20/17 02:50 Hct 43.3 % (38.0-50.0) 08/20/17 02:50 MCV 94.3 fL (80.0-98.0) 08/20/17 02:50 MCH 32.7 pg (27.0-32.0) H 08/20/17 02:50 MCHC 34.6 g/dL (31.0-37.0) 08/20/17 02:50 RDW Std Deviation 43.6 fl (28.0-62.0) 08/20/17 02:50 RDW Coeff of William 13 % (11.0-15.0) 08/20/17 02:50 Plt Count 184 K/uL (150-400) 08/20/17 02:50 MPV 11.80 fL (7.40-12.00) 08/20/17 02:50 Neut % (Auto) 78.9 % (48.0-80.0) 08/20/17 02:50 Lymph % (Auto) 15.4 % (16.0-40.0) L 08/20/17 02:50 [place] % (Auto) 5.5 % (0.0-15.0) 08/20/17 02:50 Eos % (Auto) 0.1 % (0.0-7.0) 08/20/17 02:50 Baso % (Auto) 0.1 % (0.0-1.5) 08/20/17 02:50 Neut # (Auto) 12.3 K/uL (1.4-5.7) H 08/20/17 02:50 Lymph # (Auto) 2.4 K/uL (0.6-2.4) 08/20/17 02:50 [place] # (Auto) 0.9 K/uL (0.0-0.8) H 08/20/17 02:50 Eos # (Auto) 0.0 K/uL (0.0-0.7) 08/20/17 02:50 Baso # (Auto) 0.0 K/uL (0.0-0.1) 08/20/17 02:50 Nucleated RBC % 0.0 /100WBC 08/20/17 02:50 Nucleated RBCs # 0 K/uL 08/20/17 02:50 INR 1.02 08/20/17 02:50 Sodium 142 mmol/L (136-148) 08/20/17 02:50 Potassium 3.4 mmol/L (3.5-5.1) L 08/20/17 02:50 Chloride 106 mmol/L (98-107) 08/20/17 02:50 Carbon Dioxide 26.5 mmol/L (21.0-32.0) 08/20/17 02:50 BUN 19 mg/dL (7.0-18.0) H 08/20/17 02:50 Creatinine 1.0 mg/dL (0.8-1.3) 08/20/17 02:50 Est Cr Clr Drug Dosing 103.42 mL/min 08/20/17 02:50 Estimated GFR (MDRD) > 60.0 ml/min 08/20/17 02:50 Glucose 109 mg/dL (74-106) H 08/20/17 02:50 Calcium 8.8 mg/dL (8.5-10.1) 08/20/17 02:50 Total Bilirubin 0.6 mg/dL (0.2-1.0) 08/20/17 02:50 AST 25 IU/L (15-37) 08/20/17 02:50 ALT 47 IU/L (14-63) 08/20/17 02:50 Alkaline Phosphatase 61 U/L (46-116) 08/20/17 02:50 Total Protein 7.3 g/dL (6.4-8.2) 08/20/17 02:50 Albumin 3.3 g/dL (3.4-5.0) L 08/20/17 02:50 Globulin 4.0 g/dL (2.0-3.5) H 08/20/17 02:50 Albumin/Globulin Ratio 0.8 (1.3-2.8) L 08/20/17 02:50 Blood Type O POSITIVE 08/20/17 03:45 Antibody Screen NEGATIVE 08/20/17 03:45 Crossmatch See Detail 08/20/17 03:45 - Allergies Allergies/Adverse Reactions: Allergies Allergy/AdvReac Type Severity Reaction Status Date / Time diphenhydramine HCl Allergy Hives Verified 08/20/17 02:54 [From Benadryl] Penicillins Allergy Hives Verified 08/20/17 02:54 - Blood Blood Available: No Product(s) Available: None - Anesthesia Plan Pre-Op Medication Ordered: None - Acknowledgements Anesthesia Type Planned: General Anesthesia Pt an Appropriate Candidate for the Planned Anesthesia: Yes Alternatives and Risks of Anesthesia Discussed w Pt/Guardian: Yes Pt/Guardian Understands and Agrees with Anesthesia Plan: Yes Additional Comments: mother at bedside and explanation of plan done. Patient understands and wishes to proceed as does his surgeon. this written documentation is being done after bedside care and ending of the surgical case. PreAnesthesia Questionnaire - Past Health History Medical/Surgical History: Denies Medical/Surgical History HEENT History: Reports: Other (See Below) Other HEENT History: wears glasses Cardiovascular History: Reports: None Respiratory History: Reports: None Gastrointestinal History: Reports: Chronic Diarrhea, GERD Genitourinary History: Reports: None Musculoskeletal History: Reports: Gout Neurological History: Reports: None Psychiatric History: Reports: Anxiety Endocrine/Metabolic History: Reports: Obesity/BMI 30+ Hematologic History: Reports: None Dermatologic History: Reports: None - Infectious Disease History Infectious Disease History: Reports: Chicken Pox - Past Surgical History HEENT Surgical History: Reports: Tonsillectomy GI Surgical History: Reports: Cholecystectomy - SUBSTANCE USE Smoking Status *Q: Never Smoker Tobacco Use Within Last Twelve Months: No Second Hand Smoke Exposure: No Days Per Week of Alcohol Use: 0 Number of Drinks Per Day: 0 Total Drinks Per Week: 0 Recreational Drug Use History: No - HOME MEDS Home Medications: Home Meds Omeprazole Magnesium [Prilosec Otc] 20 mg PO DAILY 10/10/13 [History] Allopurinol [Zyloprim] 300 mg PO DAILY 08/12/17 [History] - CURRENT (IN HOUSE) MEDS Current Meds: Current Medications Sodium Chloride (Normal Saline) 1,000 mls @ 999 mls/hr IV ASDIRECTED STEPHEN Last Admin: 08/20/17 04:02 Dose: 999 mls/hr Discontinued Medications Epinephrine HCl (Adrenalin) Confirm Administered Dose 1 mg .ROUTE .STK-MED ONE Stop: 08/20/17 03:56 Fentanyl (Sublimaze) Confirm Administered Dose 100 mcg .ROUTE .STK-MED ONE Stop: 08/20/17 04:03 Fentanyl (Sublimaze) Confirm Administered Dose 100 mcg .ROUTE .STK-MED ONE Stop: 08/20/17 04:46 Sodium Chloride (Normal Saline) 1,000 mls @ 999 mls/hr IV .Bolus ONE Stop: 08/20/17 03:55 Last Admin: 08/20/17 02:50 Dose: 999 mls/hr Lidocaine (Xylocaine-Mpf 2%) Confirm Administered Dose 5 ml .ROUTE .STK-MED ONE Stop: 08/20/17 04:02 Midazolam HCl (Versed 1 Mg/Ml) Confirm Administered Dose 2 mg .ROUTE .STK-MED ONE Stop: 08/20/17 04:03 Oxymetazoline HCl (Afrin Original 0.05% Nasal [place]) Confirm Administered Dose 15 ml .ROUTE .STK-MED ONE Stop: 08/20/17 03:56 Phenylephrine HCl (Phenylephrine In Ns 100 Mcg/Ml) Confirm Administered Dose 1 mg .ROUTE .STK-MED ONE Stop: 08/20/17 04:45 Propofol (Diprivan 20 Ml) Confirm Administered Dose 200 mg .ROUTE .STK-MED ONE Stop: 08/20/17 04:03 Rocuronium [place] (Zemuron) Confirm Administered Dose 100 mg .ROUTE .STK-MED ONE Stop: 08/20/17 04:02 Succinylcholine Chloride (Quelicin) Confirm Administered Dose 200 mg .ROUTE .STK -MED ONE Stop: 08/20/17 04:07
[2017-08-20] MEDS ORDERED: Ondansetron 4 MG/2 ML SDV ONE (05:15)
--- NOTE | 2017-08-20 05:33 | PCM.OPNOTE ---
- General Post-Op/Procedure Note Date of Surgery/Procedure: 08/20/17 Condition: Fair Free Text/Narrative:: Preoperative Diagnosis: Post tonsillectomy hemorrhage Postoperative Diagnosis:Post tonsillectomy hemorrhage Procedure: Arrest of post tonsillectomy hemorrhage Surgeon: Catrina Landaverde MD Anesthesia: GA Anesthesiologist: Florencia Amador CRNA Date of procedure: 08/20/2017 Indications: Patient presented to ER with actively coughing up blood; he lost a significant amount of blood in ER and per patient - at home; approx blood loss 1.5L. A decision was made to take him back to OR for arrest of hemorrhage. An informed consent was obtained Findings: Actively bleeding Left lower fossa vessel - likely artery at base of tongue - clamped and cauterized Operation Details: An informed consent was obtained. A time out was performed and the patient was brought back to the operating room. General anesthesia was administered with an endotracheal tube. The table was turned 90 away from the anesthesia cart. Patient was appropriately positioned on the operating table. An appropriately sized Caesar Frantz mouth gag was positioned and suspended from a Patterson stand. Clots and blood were suctioned out. The bleeding source was identified as above and hemorrhage controlled. The stomach was suctioned and lavaged with warm saline - 100 ml. Hemostasis was achieved. This concluded the procedure. Mouth gag was removed the oral cavity was inspected. Lips gums and teeth were intact. Lubricating jelly was applied to the lips. The patient was turned over to the anesthesiologist for recovery. Specimens: none IV fluids: 2800 ml Blood loss : 250 ml Blood products: nil Disposition: PACU for recovery and then to floor for phase 2
--- NOTE | 2017-08-20 05:54 | PCM.POSTAN ---
POST ANESTHESIA ASSESSMENT - MENTAL STATUS Mental Status: Alert, Oriented - RESPIRATORY Respiratory Status: Respiratory Rate WNL, Airway Patent, O2 Saturation Stable - CARDIOVASCULAR CV Status: Pulse Rate WNL, Blood Pressure Stable - GASTROINTESTINAL GI Status: No Symptoms - POST OP HYDRATION Hydration Status: Adequate & Stable
[2017-08-20] MEDS ORDERED: Dexamethasone 4 MG/ML 5 ML MDV ONE (06:13)
[2017-08-20] MEDS ORDERED: Acetaminophen 1,000 MG in Premix Bag 1 BAG IV ONE (07:30)
--- NOTE | 2017-08-20 08:48 | PCM48HPAN ---
Post Anesthesia Note - EVALUATION WITHIN 48HRS OF ANESTHETIC Vital Signs in Normal Range: Yes Patient Participated in Evaluation: Yes Respiratory Function Stable: Yes Airway Patent: Yes Cardiovascular Function Stable: Yes Hydration Status Stable: Yes Pain Control Satisfactory: No (pt states pain is severe. being treated and wearing ice collar) Nausea and Vomiting Control Satisfactory: Yes Mental Status Recovered: Yes Resp Rate: 16
[2017-08-20] MEDS ORDERED: Ibuprofen 400 MG Tab PO SCH (09:45)
[2017-08-20] MEDS ORDERED: Acetaminophen 325 MG Tab PO SCH (09:45)
[2017-08-20] MEDS ORDERED: oxyCODONE 5 MG Tab PO PRN (13:00)
--- NOTE | 2017-08-20 13:06 | PCM.SN ---
- Free Text/Narrative Note: Patient has been well since arrest of post tonsillectomy hemorrhage in the early hours of this am Pain reasonably controlled; no further bleeding Vitals stable - except low oxygen saturation - is chronic and he will be reviewing with PCP for this Plan: PO analgesia and diet Home later Rest discharge instructions - as provided post operatively
[2017-08-20] MEDS ORDERED: Acetaminophen 650 MG in Premix Bag 1 BAG IV ONE (13:44)
== END 2017-08-20 16:00 | disposition home or self-care (01) ==
LOC: MW.ED 02:47 → MW.SDS 03:43 → MW.MS 06:01 → MW.SDS 16:00
PROVIDERS: ATTEND Otolaryngology
DX: J95.830 Postprocedural hemorrhage of a respiratory system organ or structure following a respiratory system procedure (principal); K21.9 Gastro-esophageal reflux disease without esophagitis; M10.9 Gout, unspecified; F41.9 Anxiety disorder, unspecified; E66.9 Obesity, unspecified; Z68.30 Body mass index [BMI] 30.0-30.9, adult; Z88.8 Allergy status to other drugs, medicaments and biological substances; Z88.0 Allergy status to penicillin; Z79.899 Other long term (current) drug therapy; Z90.89 Acquired absence of other organs
CPT/HCPCS: 42960; 80053; 85025; 85610; 96360; 99285; A9270; J0330; J1100; J2250; J2405; J3010; J7040; J0171; J2704

== ENCOUNTER 2018-02-03 20:38 | Observation (INO) | payer BC ==
[2018-02-03] MEDS ORDERED: Sodium Chloride 0.9% 10 ML Syringe FLUSH PRN (20:54)
[2018-02-03] MEDS ORDERED: Sodium Chloride 0.9% 2.5 ML Syringe FLUSH PRN (20:54)
[2018-02-03] MEDS ORDERED: Aspirin 81 MG Tab.Chew PO ONE (20:54)
[2018-02-03] MEDS ORDERED: Famotidine 20 MG/2 ML SDV IVPUSH ONE (20:54)
[2018-02-03] MEDS ORDERED: Sodium Chloride 0.9% 1,000 ML IV ONE (20:54)
--- NOTE | 2018-02-03 20:54 | EDM.PDOC ---
ED HPI GENERAL MEDICAL PROBLEM - General Chief Complaint: Chest Pain Stated Complaint: CHEST PAIN Time Seen by Provider: 02/03/18 20:48 Source of Information: Reports: Patient History Limitations: Reports: No Limitations - History of Present Illness INITIAL COMMENTS - FREE TEXT/NARRATIVE: HISTORY AND PHYSICAL: []38-year-old male presenting with right-sided chest pain since last night off and on History of Present Illness: []Pain did wake him up from sleeping Aspirin was taken 1 tablet about 3:00 this afternoon Patient had seen Dr. Shepherd in the clinic 2 weeks ago for right lower quadrant pain appendicitis had been ruled out Denies any nausea denies any jaw pain Review of Systems: As per history of present illness and below otherwise all systems reviewed and negative. Past medical history: As per history of present illness and as reviewed below otherwise noncontributory. Surgical history: As per history of present illness and as reviewed below otherwise noncontributory. Social history: No reported history of drug or alcohol abuse. Family history: As per history of present illness and as reviewed below otherwise noncontributory. Physical exam: Patient just feels uneasy and presented to the ER he is alert and oriented answering questions appropriately he is in full sentences without any shortness of breath. He states that he is probably making himself anxious and feels that his left arm now has become less strong. HEENT: Atraumatic, normocehpalic, pupils reactive, negative for conjunctival pallor or scleral icterus, mucous membranes moist, throat clear, neck supple, nontender, trachea midline. Lungs: Clear to auscultation, breath sounds equal bilaterally, chest non tender to palpation. Heart: S1S2, regular, negative for clicks, rubs, or JVD. Abdomen: Soft, nondistended, nontender. Negative for masses or hepatossplenmegaly. Negative for costovertebral tenderness. Pelvis: Stable nontender. Genitourinary: Deferred. Rectal: Deferred Extremities: Atraumatic, negative for cords or calf pain. Neurovascular unremarkable. Neuro: Awake, alert, oriented. Cranial nerves II through XII unremarkable. Cerebellum unremarkable. Motor and sensory unremarkable throughout. Exam nonfocal. Discussed with the patient that his cardiac enzymes are negative. his pain was relieved with one Nitrostat. he did receive a headache after that. Blood pressure improved. Discussed observation patient is agreeable to this This patient with Dr. Tijerina who is accepted for observation Diagnostics: []cbc cmp troponin ekg chest Xray Therapeutics: []asa Nitrostat 1 Impression: []ATypical chest pain Plan: [] Definitive disposition and diagnosis as appropriate pending reevaluation and review of above. 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 R chest Pain Score (Numeric/FACES): 5 - Related Data Allergies Allergy/AdvReac Type Severity Reaction Status Date / Time diphenhydramine HCl Allergy Hives Verified 02/03/18 20:57 [From Benadryl] Penicillins Allergy Hives Verified 02/03/18 20:57 Home Meds: Home Meds Allopurinol [Zyloprim] 300 mg PO DAILY 08/12/17 [History] Lansoprazole [Prevacid] 30 mg PO DAILY 02/03/18 [History] Past Medical History - Past Health History Medical/Surgical History: Denies Medical/Surgical History HEENT History: Reports: Other (See Below) Other HEENT History: wears glasses Cardiovascular History: Reports: None Respiratory History: Reports: None Gastrointestinal History: Reports: Chronic Diarrhea, GERD Genitourinary History: Reports: None Musculoskeletal History: Reports: Gout Neurological History: Reports: None Psychiatric History: Reports: Anxiety Endocrine/Metabolic History: Reports: Obesity/BMI 30+ Hematologic History: Reports: None Dermatologic History: Reports: None - Infectious Disease History Infectious Disease History: Reports: Chicken Pox - Past Surgical History GI Surgical History: Reports: Cholecystectomy Social & Family History - Family History Family Medical History: Noncontributory ED ROS GENERAL - Review of Systems Review Of Systems: ROS reveals no pertinent complaints other than HPI. ED EXAM, GENERAL - Physical Exam Exam: See Below (see dictation) EKG INTERPRETATION EKG Date: 02/03/18 Rhythm: NSR Course - Vital Signs Last Recorded V/S: Last Vital Signs Temp 36.4 C 02/03/18 20:44 Pulse 90 02/03/18 21:17 Resp 12 02/03/18 21:17 BP 140/76 02/03/18 21:17 Pulse Ox 95 02/03/18 21:17 - Orders/Labs/Meds Orders: Active Orders 24 hr Category Date Time Status Cardiac Monitoring [RC] . DIRECTED Care 02/03/18 20:54 Active EKG Documentation Completion [RC] STAT Care 02/03/18 20:55 Active Oxygen Therapy [RC] ASDIRECTED Care 02/03/18 20:54 Active Pulse Oximetry [RC] ASDIRECTED Care 02/03/18 20:54 Active Chest 1V Frontal [CR] Stat Exams 02/03/18 20:54 Ordered UA W/MICROSCOPIC [URIN] Stat Lab 02/03/18 20:55 Ordered Nitroglycerin [Nitrostat] Med 02/03/18 21:06 Active 0.4 mg SL Q5M PRN Sodium Chloride 0.9% [Saline Flush] Med 02/03/18 20:54 Active 10 ml FLUSH ASDIRECTED PRN Sodium Chloride 0.9% [Saline Flush] Med 02/03/18 20:54 Active 2.5 ml FLUSH ASDIRECTED PRN Saline Lock Insert [OM.PC] Stat Oth 02/03/18 20:54 Ordered Medication Orders Nitroglycerin (Nitrostat) 0.4 mg SL Q5M PRN PRN Reason: Chest Pain Last Admin: 02/03/18 21:08 Dose: 0.4 mg Sodium Chloride (Saline Flush) 10 ml FLUSH ASDIRECTED PRN PRN Reason: Keep Vein Open Last Admin: 02/03/18 21:07 Dose: 10 ml Sodium Chloride (Saline Flush) 2.5 ml FLUSH ASDIRECTED PRN PRN Reason: Keep Vein Open Last Admin: 02/03/18 21:07 Dose: 2.5 ml Labs: Laboratory Tests 02/03/18 02/03/18 02/03/18 Range/Units 20:50 20:50 20:50 WBC 8.24 (4.0-11.0) K/uL RBC 4.91 (4.50-5.90) M/uL Hgb 16.1 (13.0-17.0) g/dL Hct 44.5 (38.0-50.0) % MCV 90.6 (80.0-98.0) fL MCH 32.8 H (27.0-32.0) pg MCHC 36.2 (31.0-37.0) g/dL RDW Std Deviation 41.6 (28.0-62.0) fl RDW Coeff of William 13 (11.0-15.0) % Plt Count 192 (150-400) K/uL MPV 11.80 (7.40-12.00) fL Neut % (Auto) 52.8 (48.0-80.0) % Lymph % (Auto) 36.5 (16.0-40.0) % [place] % (Auto) 8.5 (0.0-15.0) % Eos % (Auto) 1.6 (0.0-7.0) % Baso % (Auto) 0.6 (0.0-1.5) % Neut # (Auto) 4.4 (1.4-5.7) K/uL Lymph # (Auto) 3.0 H (0.6-2.4) K/uL [place] # (Auto) 0.7 (0.0-0.8) K/uL Eos # (Auto) 0.1 (0.0-0.7) K/uL Baso # (Auto) 0.1 (0.0-0.1) K/uL Nucleated RBC % 0.0 /100WBC Nucleated RBCs # 0 K/uL INR 0.95 Sodium 138 (136-148) mmol/L Potassium 3.5 (3.5-5.1) mmol/L Chloride 102 (98-107) mmol/L Carbon Dioxide 28.0 (21.0-32.0) mmol/L BUN 20 H (7.0-18.0) mg/dL Creatinine 1.0 (0.8-1.3) mg/dL Est Cr Clr Drug Dosing 102.40 mL/min Estimated GFR (MDRD) > 60.0 ml/min Glucose 120 H (74-106) mg/dL Calcium 9.5 (8.5-10.1) mg/dL Total Bilirubin 0.4 (0.2-1.0) mg/dL AST 18 (15-37) IU/L ALT 43 (14-63) IU/L Alkaline Phosphatase 69 (46-116) U/L Troponin I < 0.050 (0.000-0.056) ng/mL Total Protein 8.3 H (6.4-8.2) g/dL Albumin 3.9 (3.4-5.0) g/dL Globulin 4.4 H (2.0-3.5) g/dL Albumin/Globulin Ratio 0.9 L (1.3-2.8) Amylase 60 (25-115) U/L Lipase 213 (73-393) U/L Meds: Medications Generic Name Dose Route Start Last Admin Trade Name Freq PRN Reason Stop Dose Admin Nitroglycerin 0.4 mg 02/03/18 21:06 02/03/18 21:08 Nitrostat SL 0.4 mg Q5M PRN Administration Chest Pain Sodium Chloride 10 ml 02/03/18 20:54 02/03/18 21:07 Saline Flush FLUSH 10 ml ASDIRECTED PRN Administration Keep Vein Open Sodium Chloride 2.5 ml 02/03/18 20:54 02/03/18 21:07 Saline Flush FLUSH 2.5 ml ASDIRECTED PRN Administration Keep Vein Open Discontinued Medications Generic Name Dose Route Start Last Admin Trade Name Scooterq PRN Reason Stop Dose Admin Aspirin 324 mg 02/03/18 20:54 02/03/18 21:07 Aspirin PO 02/03/18 20:55 324 mg ONETIME ONE Administration Famotidine 20 mg 02/03/18 20:54 02/03/18 21:07 Pepcid IVPUSH 02/03/18 20:55 20 mg ONETIME ONE Administration Sodium Chloride 1,000 mls @ 999 mls/hr 02/03/18 20:54 02/03/18 21:06 Normal Saline IV 02/03/18 21:54 999 mls/hr BOLUS ONE Administration Nitroglycerin Confirm 02/03/18 21:06 02/03/18 21:10 Nitrostat Administered 02/03/18 21:07 Not Given Dose 0.4 mg .ROUTE .STK-MED ONE Departure - Departure Time of Disposition: 22:02 Disposition: Refer to Observation Condition: Good Clinical Impression: Atypical chest pain Forms: ED Department Discharge - My Orders Last 24 Hours: My Active Orders 02/03/18 20:54 Cardiac Monitoring [RC] . DIRECTED Oxygen Therapy [RC] ASDIRECTED Pulse Oximetry [RC] ASDIRECTED Chest 1V Frontal [CR] Stat Sodium Chloride 0.9% [Saline Flush] 10 ml FLUSH ASDIRECTED PRN Sodium Chloride 0.9% [Saline Flush] 2.5 ml FLUSH ASDIRECTED PRN Saline Lock Insert [OM.PC] Stat 02/03/18 20:55 EKG Documentation Completion [RC] STAT UA W/MICROSCOPIC [URIN] Stat 02/03/18 21:06 Nitroglycerin [Nitrostat] 0.4 mg SL Q5M PRN - Assessment/Plan Last 24 Hours: My Active Orders 02/03/18 20:54 Cardiac Monitoring [RC] . DIRECTED Oxygen Therapy [RC] ASDIRECTED Pulse Oximetry [RC] ASDIRECTED Chest 1V Frontal [CR] Stat Sodium Chloride 0.9% [Saline Flush] 10 ml FLUSH ASDIRECTED PRN Sodium Chloride 0.9% [Saline Flush] 2.5 ml FLUSH ASDIRECTED PRN Saline Lock Insert [OM.PC] Stat 02/03/18 20:55 EKG Documentation Completion [RC] STAT UA W/MICROSCOPIC [URIN] Stat 02/03/18 21:06 Nitroglycerin [Nitrostat] 0.4 mg SL Q5M PRN
[2018-02-03] MEDS ORDERED: Nitroglycerin 0.4 MG Tab.SL SL PRN (21:06)
[2018-02-03] MEDS ORDERED: Nitroglycerin 0.4 MG Tab.SL ONE (21:06)
[2018-02-03 21:24] LABS: CHLORIDE,CL 102 mmol/L (98-107); SODIUM,NA 138 mmol/L (136-148)
[2018-02-04] MEDS ORDERED: Acetaminophen 325 MG Tab PO PRN (00:31)
--- NOTE | 2018-02-04 07:08 | PCM.HP ---
H&P History of Present Illness - General Date of Service: 02/04/18 Admit Problem/Dx: Admission Diagnosis/Problem Admission Diagnosis/Problem Chest pain - History of Present Illness Initial Comments - Free Text/Narative: The patient is a 38-year-old male who presented to the ER with right-sided chest pain. He reports right-sided chest pain for the past few weeks where he gets episodes of sharp quick pain that lasts for seconds. He does not have any associated shortness of breath or nausea. But yesterday he did get diaphoretic and lightheaded with the pain. He has no past medical history of CA, hypertension, hyperlipidemia or diabetes. He does have a family history with his grandpa having a heart attack in his 70s. The patient also reported that a few weeks ago when all this started, he had been moving and lifting a lot of boxes. He stated he may have pulled something, but the pain is not reproducible. In the ER, they did initial lab work with a negative troponin. He was given an aspirin, nitroglycerin, which she is not sure if it brought him relief, Pepcid and IV fluids. They got a chest x-ray that showed mild cardiomegaly that was stable, but could be related to the portable technique. EKG showed normal sinus rhythm. This morning he was not having any chest pain. He felt good and was ready to go home. R chest Pain Score (Numeric/FACES): 5 - Related Data Allergies/Adverse Reactions: Allergies Allergy/AdvReac Type Severity Reaction Status Date / Time diphenhydramine HCl Allergy Hives Verified 02/03/18 20:57 [From Benadryl] Penicillins Allergy Hives Verified 02/03/18 20:57 Home Medications: Home Meds Allopurinol [Zyloprim] 300 mg PO DAILY 08/12/17 [History] Lansoprazole [Prevacid] 30 mg PO DAILY 02/03/18 [History] Past Medical History HEENT History: Reports: Other (See Below) Other HEENT History: wears glasses Cardiovascular History: Reports: None Respiratory History: Reports: None Gastrointestinal History: Reports: Chronic Diarrhea, GERD Genitourinary History: Reports: None Musculoskeletal History: Reports: Gout Neurological History: Reports: None Psychiatric History: Reports: Anxiety Endocrine/Metabolic History: Reports: Obesity/BMI 30+ Hematologic History: Reports: None Dermatologic History: Reports: None - Infectious Disease History Infectious Disease History: Reports: Chicken Pox - Past Surgical History HEENT Surgical History: Reports: Adenoidectomy, Tonsillectomy Respiratory Surgical History: Reports: None GI Surgical History: Reports: Cholecystectomy Social & Family History - Family History Family Medical History: Noncontributory - Tobacco Use Smoking Status *Q: Former Smoker Used Tobacco, but Quit: Yes Month/Year Tobacco Last Used: 2015 Second Hand Smoke Exposure: No - Caffeine Use Caffeine Use: Reports: Soda - Alcohol Use Alcohol Use History: Yes Days Per Week of Alcohol Use: 3 Number of Drinks Per Day: 2 Total Drinks Per Week: 6 - Recreational Drug Use Recreational Drug Use: No Drug Use in Last 12 Months: No Recreational Drug Type: Reports: Marijuana/Hashish H&P Review of Systems - Review of Systems: Review Of Systems: See Below General: Reports: No Symptoms HEENT: Reports: No Symptoms Pulmonary: Reports: No Symptoms Cardiovascular: Reports: Chest Pain, Lightheadedness. Denies: Edema Gastrointestinal: Reports: No Symptoms Genitourinary: Reports: No Symptoms Musculoskeletal: Reports: No Symptoms Skin: Reports: No Symptoms Psychiatric: Reports: No Symptoms Neurological: Reports: No Symptoms Hematologic/Lymphatic: Reports: No Symptoms Immunologic: Reports: No Symptoms Exam - Exam Exam: See Below - Vital Signs Vital Signs: Last Vital Signs Temp 98.7 F 02/04/18 05:21 Pulse 77 02/04/18 05:21 Resp 18 02/04/18 05:21 BP 118/66 02/04/18 05:21 Pulse Ox 99 02/04/18 05:21 Weight: 100.244 kg - Exam General: Alert, Oriented, Cooperative HEENT: Conjunctiva Clear, EOMI, Mucosa Moist & [place], Posterior Pharynx Clear, Pupils Equal, Pupils Reactive Neck: Supple Lungs: Clear to Auscultation, Normal Respiratory Effort Cardiovascular: Regular Rate, Regular Rhythm GI/Abdominal Exam: Normal Bowel Sounds, Soft, Non-Tender, No Distention Extremities: Normal Inspection, No Pedal Edema Skin: Warm, Dry Neuro Extensive - Mental Status: Alert, Oriented x3 Psychiatric: Alert, Normal Affect, Normal Mood - Patient Data Lab Results Last 24 hrs: Laboratory Results - last 24 hr 02/03/18 02/03/18 02/03/18 Range/Units 20:50 20:50 20:50 WBC 8.24 (4.0-11.0) K/uL RBC 4.91 (4.50-5.90) M/uL Hgb 16.1 (13.0-17.0) g/dL Hct 44.5 (38.0-50.0) % MCV 90.6 (80.0-98.0) fL MCH 32.8 H (27.0-32.0) pg MCHC 36.2 (31.0-37.0) g/dL RDW Std Deviation 41.6 (28.0-62.0) fl RDW Coeff of William 13 (11.0-15.0) % Plt Count 192 (150-400) K/uL MPV 11.80 (7.40-12.00) fL Neut % (Auto) 52.8 (48.0-80.0) % Lymph % (Auto) 36.5 (16.0-40.0) % [place] % (Auto) 8.5 (0.0-15.0) % Eos % (Auto) 1.6 (0.0-7.0) % Baso % (Auto) 0.6 (0.0-1.5) % Neut # (Auto) 4.4 (1.4-5.7) K/uL Lymph # (Auto) 3.0 H (0.6-2.4) K/uL [place] # (Auto) 0.7 (0.0-0.8) K/uL Eos # (Auto) 0.1 (0.0-0.7) K/uL Baso # (Auto) 0.1 (0.0-0.1) K/uL Nucleated RBC % 0.0 /100WBC Nucleated RBCs # 0 K/uL INR 0.95 Sodium 138 (136-148) mmol/L Potassium 3.5 (3.5-5.1) mmol/L Chloride 102 (98-107) mmol/L Carbon Dioxide 28.0 (21.0-32.0) mmol/L BUN 20 H (7.0-18.0) mg/dL Creatinine 1.0 (0.8-1.3) mg/dL Est Cr Clr Drug Dosing 102.40 mL/min Estimated GFR (MDRD) > 60.0 ml/min Glucose 120 H (74-106) mg/dL Calcium 9.5 (8.5-10.1) mg/dL Total Bilirubin 0.4 (0.2-1.0) mg/dL AST 18 (15-37) IU/L ALT 43 (14-63) IU/L Alkaline Phosphatase 69 (46-116) U/L Troponin I < 0.050 (0.000-0.056) ng/mL Total Protein 8.3 H (6.4-8.2) g/dL Albumin 3.9 (3.4-5.0) g/dL Globulin 4.4 H (2.0-3.5) g/dL Albumin/Globulin Ratio 0.9 L (1.3-2.8) Amylase 60 (25-115) U/L Lipase 213 (73-393) U/L Urine Color Urine Appearance Urine pH (5.0-8.0) Ur Specific [place] (1.001-1.035) Urine Protein (NEGATIVE) mg/dL Urine Glucose (UA) (NEGATIVE) mg/dL Urine Ketones (NEGATIVE) mg/dL Urine Occult Blood (NEGATIVE) Urine Nitrite (NEGATIVE) Urine Bilirubin (NEGATIVE) Urine Urobilinogen (<2.0) EU/dL Ur Leukocyte Esterase (NEGATIVE) Urine RBC (0-2/HPF) Urine WBC (0-5/HPF) Ur Epithelial Cells (NONE-FEW) Urine Bacteria (NEGATIVE) Urine Mucus (NONE-MOD) 02/03/18 02/04/18 Range/Units 22:05 02:55 WBC (4.0-11.0) K/uL RBC (4.50-5.90) M/uL Hgb (13.0-17.0) g/dL Hct (38.0-50.0) % MCV (80.0-98.0) fL MCH (27.0-32.0) pg MCHC (31.0-37.0) g/dL RDW Std Deviation (28.0-62.0) fl RDW Coeff of William (11.0-15.0) % Plt Count (150-400) K/uL MPV (7.40-12.00) fL Neut % (Auto) (48.0-80.0) % Lymph % (Auto) (16.0-40.0) % [place] % (Auto) (0.0-15.0) % Eos % (Auto) (0.0-7.0) % Baso % (Auto) (0.0-1.5) % Neut # (Auto) (1.4-5.7) K/uL Lymph # (Auto) (0.6-2.4) K/uL [place] # (Auto) (0.0-0.8) K/uL Eos # (Auto) (0.0-0.7) K/uL Baso # (Auto) (0.0-0.1) K/uL Nucleated RBC % /100WBC Nucleated RBCs # K/uL INR Sodium (136-148) mmol/L Potassium (3.5-5.1) mmol/L Chloride (98-107) mmol/L Carbon Dioxide (21.0-32.0) mmol/L BUN (7.0-18.0) mg/dL Creatinine (0.8-1.3) mg/dL Est Cr Clr Drug Dosing mL/min Estimated GFR (MDRD) ml/min Glucose (74-106) mg/dL Calcium (8.5-10.1) mg/dL Total Bilirubin (0.2-1.0) mg/dL AST (15-37) IU/L ALT (14-63) IU/L Alkaline Phosphatase (46-116) U/L Troponin I < 0.050 (0.000-0.056) ng/mL Total Protein (6.4-8.2) g/dL Albumin (3.4-5.0) g/dL Globulin (2.0-3.5) g/dL Albumin/Globulin Ratio (1.3-2.8) Amylase (25-115) U/L Lipase (73-393) U/L Urine Color YELLOW Urine Appearance CLEAR Urine pH 5.5 (5.0-8.0) Ur Specific [place] >= 1.030 (1.001-1.035) Urine Protein TRACE (NEGATIVE) mg/dL Urine Glucose (UA) NEGATIVE (NEGATIVE) mg/dL Urine Ketones NEGATIVE (NEGATIVE) mg/dL Urine Occult Blood LARGE H (NEGATIVE) Urine Nitrite NEGATIVE (NEGATIVE) Urine Bilirubin NEGATIVE (NEGATIVE) Urine Urobilinogen 0.2 (<2.0) EU/dL Ur Leukocyte Esterase NEGATIVE (NEGATIVE) Urine RBC 9-13 (0-2/HPF) Urine WBC 0-1 (0-5/HPF) Ur Epithelial Cells RARE (NONE-FEW) Urine Bacteria RARE (NEGATIVE) Urine Mucus LIGHT (NONE-MOD) Result Diagrams: 02/03/18 20:50 02/03/18 20:50 Problem List Initiated/Reviewed/Updated: Yes Orders Last 24hrs: Active Orders 24 hr Category Date Time Status Patient Status [ADT] Stat ADT 02/03/18 21:59 Active Cardiac Monitoring [RC] . DIRECTED Care 02/03/18 20:54 Active EKG Documentation Completion [RC] STAT Care 02/03/18 20:55 Active Oxygen Therapy [RC] ASDIRECTED Care 02/03/18 20:54 Active Pulse Oximetry [RC] ASDIRECTED Care 02/03/18 20:54 Active Telemetry Monitoring [Cardiac Monitoring] [RC] . Care 02/03/18 21:59 Active DIRECTED Regular Diet [DIET] Diet 02/04/18 Breakfast Active Chest 1V Frontal [CR] Stat Exams 02/03/18 20:54 Taken TROPONIN I [CHEM] Routine Lab 02/04/18 08:50 Ordered Acetaminophen [Tylenol] Med 02/04/18 00:31 Active 650 mg PO Q6H PRN Nitroglycerin [Nitrostat] Med 02/03/18 21:06 Active 0.4 mg SL Q5M PRN Sodium Chloride 0.9% [Saline Flush] Med 02/03/18 20:54 Active 10 ml FLUSH ASDIRECTED PRN Sodium Chloride 0.9% [Saline Flush] Med 02/03/18 20:54 Active 2.5 ml FLUSH ASDIRECTED PRN Saline Lock Insert [OM.PC] Stat Oth 02/03/18 20:54 Ordered Medication Orders Acetaminophen (Tylenol) 650 mg PO Q6H PRN PRN Reason: Pain Nitroglycerin (Nitrostat) 0.4 mg SL Q5M PRN PRN Reason: Chest Pain Last Admin: 02/03/18 21:08 Dose: 0.4 mg Sodium Chloride (Saline Flush) 10 ml FLUSH ASDIRECTED PRN PRN Reason: Keep Vein Open Last Admin: 02/03/18 21:07 Dose: 10 ml Sodium Chloride (Saline Flush) 2.5 ml FLUSH ASDIRECTED PRN PRN Reason: Keep Vein Open Last Admin: 02/03/18 21:07 Dose: 2.5 ml Assessment/Plan Comment:: 1. Admit for observation 2. Code status- full 3. Vitals per routine 4. I/Os per routine 5. Diet- regular 6. Atypical chest pain- The patient's troponins were negative x 3. He was watched on telemetry over night without any significant events. He will be discharged today with follow up with his PCP, Dr. Shepherd on 02/17/18,as well as getting a outpatient stress test. He should continue his diet as tolerated, activity as tolerated and report any chest pain, shortness of breath, abdominal pain, nausea/vomiting, swelling, discharge, fever/chills to a physician. Continue home meds (allopurinol 300 mg PO daily and Prevacid 30 mg PO daily), no new medications prescribed.
--- NOTE | 2018-02-04 13:41 | CR ---
EXAM DATE: 02/03/18 PATIENT'S AGE: 38 Patient: BARTOLO MURGUIA Facility: [place], [place] Site . Site : 1980 Study: XRay Chest [id number]/[id number] 10:01:01 PM Ordering Physician: Doctor Salgado Final Report: Indication: Chest pain Technique: Chest 1 view Comparison: 08/18/2017. Findings/Impression: Cardiovascular and mediastinum: Mild cardiomegaly, stable, which could be partially related to the portable technique. Lungs and pleural space: Lungs are clear. No sign of infiltrate or mass. No sign of pleural effusion. No pneumothorax. Bones and soft tissues: No significant change. Dictated by Kurt Gaona MD @ 02/03/2018 10:07:28 PM Dictated by: Kurt Gaona MD @ 02/03/2018 22:07:34 (Electronic Signature) Report Signed by Proxy. BEAR
== END 2018-02-04 12:00 | disposition home or self-care (01) ==
LOC: MW.ED 20:38 → MW.MS 21:59
PROVIDERS: ADMIT Internal Medicine; ATTEND Internal Medicine
DX: R07.89 Other chest pain (principal); E66.9 Obesity, unspecified; Z68.31 Body mass index [BMI] 31.0-31.9, adult; K21.9 Gastro-esophageal reflux disease without esophagitis; M10.9 Gout, unspecified; F41.9 Anxiety disorder, unspecified; Z87.891 Personal history of nicotine dependence; Z79.899 Other long term (current) drug therapy; Z88.0 Allergy status to penicillin; Z88.8 Allergy status to other drugs, medicaments and biological substances
CPT/HCPCS: 36415; 71045; 80053; 81001; 82150; 83690; 84484; 85025; 85610; 93005; 96361; 96374; 99285; A9270; J3490; J7040; G0378

== ENCOUNTER 2018-11-03 08:12 | Emergency (ER) | payer BC ==
--- NOTE | 2018-11-03 08:20 | EDM.PDOC ---
ED HPI GENERAL MEDICAL PROBLEM - General Chief Complaint: Cardiovascular Problem Stated Complaint: SHORTNESS OF BREATH AND HIGH BP Time Seen by Provider: 11/03/18 08:19 Source of Information: Reports: Patient History Limitations: Reports: No Limitations - History of Present Illness INITIAL COMMENTS - FREE TEXT/NARRATIVE: History of present illness: []Patient started having difficulty breathing 2 nights ago that is worse at night when he is laying flat. He's had some discomfort in his left arm but denies any chest pain. Patient was unable to sleep last night due to worsening symptoms. Patient took 4 baby aspirins this morning prior to coming in. Review of systems: As per history of present illness and below otherwise all systems reviewed and negative. Past medical history: As per history of present illness and as reviewed below otherwise noncontributory. Surgical history: As per history of present illness and as reviewed below otherwise noncontributory. Social history: No reported history of drug or alcohol abuse. Family history: As per history of present illness and as reviewed below otherwise noncontributory. Physical exam: General: Well developed, well nourished in NAD HEENT: Atraumatic, normocephalic, pupils reactive, negative for conjunctival pallor or scleral icterus, mucous membranes moist, throat clear, neck supple, nontender, trachea midline. Lungs: Clear to auscultation, breath sounds equal bilaterally, chest nontender. Heart: S1S2, regular, negative for clicks, rubs, or JVD. Abdomen: NABS, Soft, nondistended, nontender. Negative for masses or hepatosplenomegaly. Negative for costovertebral tenderness. Pelvis: Stable nontender. Genitourinary: Deferred. Rectal: Deferred. Extremities: Atraumatic, negative for cords or calf pain. Neurovascular unremarkable. Neuro: Awake, alert, oriented. Cranial nerves II through XII unremarkable. Cerebellum unremarkable. Motor and sensory unremarkable throughout. Exam nonfocal. Skin:warm and dry Diagnostics: Initial blood pressure is 199/90 however second blood pressure without treatment was 145/82 Therapeutics: None ED Course: Stable Impression: Hypertensive urgency Prescriptions: None Plan: Follow-up primary care for further treatment Definitive disposition and diagnosis as appropriate pending reevaluation and review of above. - Related Data Allergies Allergy/AdvReac Type Severity Reaction Status Date / Time diphenhydramine HCl Allergy Hives Verified 02/03/18 20:57 [From Benadryl] Penicillins Allergy Hives Verified 02/03/18 20:57 Home Meds: Home Meds Allopurinol [Zyloprim] 300 mg PO DAILY 08/12/17 [History] Lansoprazole [Prevacid] 30 mg PO DAILY 02/03/18 [History] Past Medical History - Past Health History Medical/Surgical History: Denies Medical/Surgical History HEENT History: Reports: Other (See Below) Other HEENT History: wears glasses Cardiovascular History: Reports: None Respiratory History: Reports: None Gastrointestinal History: Reports: Chronic Diarrhea, GERD Genitourinary History: Reports: None Musculoskeletal History: Reports: Gout Neurological History: Reports: None Psychiatric History: Reports: Anxiety Endocrine/Metabolic History: Reports: Obesity/BMI 30+ Hematologic History: Reports: None Dermatologic History: Reports: None - Infectious Disease History Infectious Disease History: Reports: Chicken Pox - Past Surgical History HEENT Surgical History: Reports: Adenoidectomy, Tonsillectomy Respiratory Surgical History: Reports: None GI Surgical History: Reports: Cholecystectomy Social & Family History - Family History Family Medical History: Noncontributory - Caffeine Use Caffeine Use: Reports: Soda ED ROS GENERAL - Review of Systems Review Of Systems: ROS reveals no pertinent complaints other than HPI. ED EXAM, GENERAL - Physical Exam Exam: See Below (See history of present illness) Course - Vital Signs Last Recorded V/S: Last Vital Signs Temp 97.8 F 11/03/18 08:19 Pulse 100 11/03/18 08:19 Resp 20 11/03/18 08:19 BP 144/80 H 11/03/18 09:05 Pulse Ox 95 11/03/18 08:19 - Orders/Labs/Meds Orders: Active Orders 24 hr Category Date Time Status Cardiac Monitoring [RC] . DIRECTED Care 11/03/18 08:23 Active EKG 12 Lead [EKG Documentation Completion] [RC] STAT Care 11/03/18 08:23 Active Sodium Chloride 0.9% [Saline Flush] Med 11/03/18 08:23 Active 10 ml FLUSH ASDIRECTED PRN Sodium Chloride 0.9% [Saline Flush] Med 11/03/18 08:23 Active 2.5 ml FLUSH ASDIRECTED PRN Saline Lock Insert [OM.PC] Stat Oth 11/03/18 08:23 Ordered Medication Orders Sodium Chloride (Saline Flush) 10 ml FLUSH ASDIRECTED PRN PRN Reason: Keep Vein Open Sodium Chloride (Saline Flush) 2.5 ml FLUSH ASDIRECTED PRN PRN Reason: Keep Vein Open Labs: Laboratory Tests 11/03/18 11/03/18 11/03/18 Range/Units 08:25 08:25 08:25 WBC 7.36 (4.0-11.0) K/uL RBC 5.22 (4.50-5.90) M/uL Hgb 17.3 H (13.0-17.0) g/dL Hct 48.6 (38.0-50.0) % MCV 93.1 (80.0-98.0) fL MCH 33.1 H (27.0-32.0) pg MCHC 35.6 (31.0-37.0) g/dL RDW Std Deviation 41.6 (28.0-62.0) fl RDW Coeff of William 12 (11.0-15.0) % Plt Count 174 (150-400) K/uL MPV 12.10 H (7.40-12.00) fL Neut % (Auto) 51.5 (48.0-80.0) % Lymph % (Auto) 38.6 (16.0-40.0) % Morgan % (Auto) 7.5 (0.0-15.0) % Eos % (Auto) 2.0 (0.0-7.0) % Baso % (Auto) 0.4 (0.0-1.5) % Neut # (Auto) 3.8 (1.4-5.7) K/uL Lymph # (Auto) 2.8 H (0.6-2.4) K/uL Morgan # (Auto) 0.6 (0.0-0.8) K/uL Eos # (Auto) 0.2 (0.0-0.7) K/uL Baso # (Auto) 0.0 (0.0-0.1) K/uL Nucleated RBC % 0.0 /100WBC Nucleated RBCs # 0 K/uL Sodium 135 L (136-148) mmol/L Potassium 3.6 (3.5-5.1) mmol/L Chloride 101 (98-107) mmol/L Carbon Dioxide 23.2 (21.0-32.0) mmol/L BUN 20 H (7.0-18.0) mg/dL Creatinine 1.0 (0.8-1.3) mg/dL Est Cr Clr Drug Dosing 102.40 mL/min Estimated GFR (MDRD) > 60.0 ml/min Glucose 125 H (74-106) mg/dL Calcium 8.7 (8.5-10.1) mg/dL Total Bilirubin 0.5 (0.2-1.0) mg/dL AST 26 (15-37) IU/L ALT 83 H (14-63) IU/L Alkaline Phosphatase 70 (46-116) U/L Troponin I < 0.050 (0.000-0.056) ng/mL B-Natriuretic Peptide 4 (<100) PG/ML Total Protein 8.0 (6.4-8.2) g/dL Albumin 3.9 (3.4-5.0) g/dL Globulin 4.1 H (2.6-4.0) g/dL Albumin/Globulin Ratio 1.0 (0.9-1.6) Meds: Medications Generic Name Dose Route Start Last Admin Trade Name Freq PRN Reason Stop Dose Admin Sodium Chloride 10 ml 11/03/18 08:23 Saline Flush FLUSH ASDIRECTED PRN Keep Vein Open Sodium Chloride 2.5 ml 11/03/18 08:23 Saline Flush FLUSH ASDIRECTED PRN Keep Vein Open Discontinued Medications Generic Name Dose Route Start Last Admin Trade Name Freq PRN Reason Stop Dose Admin Metoprolol Tartrate 5 mg 11/03/18 08:45 11/03/18 08:53 Lopressor IVPUSH 11/03/18 08:56 Not Given Q5M [facility] Departure - Departure Time of Disposition: 09:22 Disposition: Home, Self-Care 01 Condition: Good Clinical Impression: Hypertensive urgency Referrals: PCP,Unknown [Primary Care Provider] - Forms: ED Department Discharge Additional Instructions: The following information is given to patients seen in the emergency department who are being discharged to home. This information is to outline your options for follow-up care. We provide all patients seen in our emergency department with a follow-up referral. The need for follow-up, as well as the timing and circumstances, are variable depending upon the specifics of your emergency department visit. If you don't have a primary care physician on staff, we will provide you with a referral. We always advise you to contact your personal physician following an emergency department visit to inform them of the circumstance of the visit and for follow-up with them and/or the need for any referrals to a consulting specialist. The emergency department will also refer you to a specialist when appropriate. This referral assures that you have the opportunity for follow-up care with a specialist. All of these measure are taken in an effort to provide you with optimal care, which includes your follow-up. Under all circumstances we always encourage you to contact your private physician who remains a resource for coordinating your care. When calling for follow-up care, please make the office aware that this follow-up is from your recent emergency room visit. If for any reason you are refused follow-up, please contact the [facility] Emergency Department at and asked to speak to the emergency department charge nurse. [facility] [address] [place] [address] - My Orders Last 24 Hours: My Active Orders 11/03/18 08:23 Cardiac Monitoring [RC] . DIRECTED EKG 12 Lead [EKG Documentation Completion] [RC] STAT Sodium Chloride 0.9% [Saline Flush] 10 ml FLUSH ASDIRECTED PRN Sodium Chloride 0.9% [Saline Flush] 2.5 ml FLUSH ASDIRECTED PRN Saline Lock Insert [OM.PC] Stat - Assessment/Plan Last 24 Hours: My Active Orders 11/03/18 08:23 Cardiac Monitoring [RC] . DIRECTED EKG 12 Lead [EKG Documentation Completion] [RC] STAT Sodium Chloride 0.9% [Saline Flush] 10 ml FLUSH ASDIRECTED PRN Sodium Chloride 0.9% [Saline Flush] 2.5 ml FLUSH ASDIRECTED PRN Saline Lock Insert [OM.PC] Stat
[2018-11-03] MEDS ORDERED: Sodium Chloride 0.9% 2.5 ML Syringe FLUSH PRN (08:23)
[2018-11-03] MEDS ORDERED: Sodium Chloride 0.9% 10 ML Syringe FLUSH PRN (08:23)
[2018-11-03] MEDS: Metoprolol Tartrate 5 MG/5 ML SDV IVPUSH SCH ×2 (08:52→08:53)
--- NOTE | 2018-11-03 08:58 | CR ---
EXAMINATION: Portable chest radiograph. HISTORY: Shortness of breath. FINDINGS: The trachea is midline. The cardiomediastinal silhouette is within normal limits. No pulmonary infiltrates, effusions or pneumothorax. Osseous structures appear unremarkable. IMPRESSION: No acute cardiopulmonary process.
[2018-11-03 09:03] LABS: CHLORIDE,CL 101 mmol/L (98-107); SODIUM,NA 135 mmol/L (136-148)
== END 2018-11-03 09:39 | disposition home or self-care (01) ==
LOC: MW.ED 08:12
DX: I16.0 Hypertensive urgency (principal); Z88.8 Allergy status to other drugs, medicaments and biological substances; Z88.0 Allergy status to penicillin; Z79.899 Other long term (current) drug therapy
CPT/HCPCS: 71045; 71045-26; 80053; 83880; 84484; 85025; 93005; 99285-25

== ENCOUNTER 2019-06-27 20:42 | Emergency (ER) | payer BC ==
[2019-06-27] MEDS ORDERED: Alum Hydrox/Mag Hydrox/Simeth 15 ML, Lidocaine 2% 5 ML PO ONE ×2 (21:10)
[2019-06-27] MEDS ORDERED: HYDROmorphone 1 MG/ML Syringe IVPUSH PRN (21:11)
[2019-06-27] MEDS ORDERED: Sodium Chloride 0.9% 1,000 ML IV ONE (21:35)
[2019-06-27 21:49] LABS: BLOOD UREA NITROGEN,BUN 20 mg/dL (7.0-18.0); CARBON DIOXIDE,CO2 29.4 mmol/L (21.0-32.0); CHLORIDE,CL 104 mmol/L (98-107); GLUCOSE RANDOM 92 mg/dL (74-106); POTASSIUM,K 3.4 mmol/L (3.5-5.1); SODIUM,NA 142 mmol/L (136-148)
[2019-06-27] MEDS ORDERED: Iopamidol 755 Mg/ML 100 ML Bottle IVPUSH ONE (22:06)
[2019-06-27] MEDS ORDERED: Cefepime 2 GM in Premix Bag 1 BAG IV ONE (22:45)
[2019-06-27] MEDS ORDERED: Dexamethasone 10 MG/ML SDV IVPUSH ONE (22:45)
[2019-06-27] MEDS ORDERED: Vancomycin 1.5 GM in Sodium Chloride 0.9% 500 ML IV ONE (22:49)
--- NOTE | 2019-06-27 22:49 | CT ---
INDICATION: Difficulty swallowing. TECHNIQUE: CT images were obtained through the neck following administration of intravenous contrast. COMPARISON: None. FINDINGS: Edematous thickening of the epiglottis, aryepiglottic folds, and posterior pharyngeal/hypopharyngeal wall. Mild associated narrowing of the supraglottic airway. No discrete fluid collection suggest abscess. Moderate enlargement of the lingual tonsils. Asymmetric dilatation of the left laryngeal ventricle. The parotid and submandibular glands are relatively symmetric in size and without enhancing lesions or calcifications. Prominent and mildly enlarged bilateral level II lymph nodes measuring up to 17 mm on the right at level II. The thyroid gland is normal in size and demonstrates homogeneous enhancement. The visualized paranasal sinuses and mastoid air cells are clear. Straightening of the cervical lordosis may relate to patient positioning and/or muscle spasm. The visualized lungs are without concerning opacities. IMPRESSION: 1. Edematous thickening of the epiglottis, aryepiglottic folds, and posterior pharyngeal/hypopharyngeal wall, most compatible with supraglottitis (adult epiglottitis). There is mild narrowing of the supraglottic airway. No discrete abscess is identified. 2. Moderate enlargement of the lingual tonsils, likely reactive. 3. Prominent and mildly enlarged level II lymph nodes are nonspecific, though also likely reactive. 4. Asymmetric dilatation of the left laryngeal ventricle raises the possibility of left true vocal cord paralysis. Direct inspection could be performed for further evaluation. Please note that all CT scans at this facility use dose modulation, iterative reconstruction, and/or weight-based dosing when appropriate to reduce radiation dose to as low as reasonably achievable. Dictated by Charlie Arreola MD @ Jun 27 2019 10:25PM Signed by Dr. Charlie Arreola @ Jun 27 2019 10:47PM
[2019-06-27] MEDS ORDERED: Sodium Chloride 0.9% Inhalation Soln 3 ML Neb INH PRN (22:55)
[2019-06-27] MEDS ORDERED: Vancomycin 1 GM AdvVial ONE (22:55)
[2019-06-27] MEDS ORDERED: Racepinephrine 2.25% 0.5 ML Neb Soln NEB ONE (22:55)
--- NOTE | 2019-06-27 23:25 | EDM.PDOC ---
ED HPI GENERAL MEDICAL PROBLEM - General Chief Complaint: ENT Problem Stated Complaint: THROAT SCOPE, HAVING A HARD TIME BREATHING Time Seen by Provider: 06/27/19 20:52 - History of Present Illness INITIAL COMMENTS - FREE TEXT/NARRATIVE: HPI 39-year-old male with history of GERD presents one day postop following a reported upper GI endoscopy with esophageal dilation complaining of mid neck discomfort and difficulty swallowing. No fevers, chills, neck stiffness. States that he is been unable to take any liquids or solids since discharge yesterday. Has not discuss this with his surgeon. M/S/F/SocHx notable for: please see HPI; remainder reviewed with patient and in chart. ROS: Negative constitutional, eye, cardiovascular, pulmonary, GI, , MSK, skin , neurologic, psychiatric, endocrine unless noted in the HPI. Exam HR 107, RR 16, BP 144/81, T 36.6C, SaO2 96% on room air. Gen: Pleasant, uncomfortable appearing but not in extremis. HEENT: NC, AT, PEERL, EOMI. Oropharynx visually normal, neck supple. Patient unable to tolerate secretions. No stridor or stertor. Resp: Clear to auscultation bilaterally, normal work of breathing, no accessory muscle usage. Card: Regular rate and rhythm with no murmurs, rubs, or gallops, extremities warm and well perfused. GI: Non-tender to palpation throughout all quadrants, no focal tenderness at McBurney's point, negative Murray's sign, non-distended, no rebound or guarding. : No suprapubic tenderness to palpation. MSK: No visible deformities, strength and tone without visually appreciable deficit. Skin: Normal color with no visible lesions. Neuro: alert and oriented 3, no facial asymmetry, vision and hearing WNL. Psych: Mood and affect appropriate. Labs / Imaging: WBC 13.5, Hb 18.2, Na 142, K 3.4, Cr 1.2. CT Neck: 1. Edematous thickening of the epiglottis, alirio epiglottic folds, and posterior pharyngeal/hypopharyngeal wall, most compatible with supraglottitis (adult epiglottitis). There is mild narrowing of the supraglottic airway. No discrete abscess is identified. 2. Moderate enlargement of the lingual tonsils, likely reactive. 3. Prominent and mildly enlarged level II lymph nodes are nonspecific, though also likely reactive. 4. Asymmetric dilatation of the left laryngeal ventricle raises the possibility of left true vocal cord paralysis. Direct inspection could be performed for further evaluation. MDM Previous chart, nursing note, labs, imaging, and vitals reviewed. A: 39-year-old male with history of GERD presents one day postop following a reported upper GI endoscopy with esophageal dilation complaining of mid neck discomfort and difficulty swallowing. DDx: RPA, epiglottitis, esophageal irritation, esophageal perforation. Evaluation: patient unable tolerate secretions or liquids (PO challenge with water challenge grossly failed). GI cocktail, hydromorphone given for symptomatic treatment. 1 L NS given for hydration, screening labs and imaging ordered. Imaging concerning for epiglottitis, discussed with the radiologist, reviewed yesterday's procedure, imaging is most strongly consistent with epiglottitis. Blood cultures ordered, dexamethasone, racemic epinephrine, cefepime, and vancomycin ordered. Discussed case with Dr. Christensen - the emergency medicine physician in [place] - patient accepted in transfer. Also discuss case with Dr. Wade, the ENT in [place]. No further recommendations. No ground transfer options available in an appropriate timeframe. Helicopter transfer unavailable. Patient transferred by fixed wing to [place]. Patient with stable upper airway throughout ED course. Intubation not presently indicated. Impression: epiglottitis. (please reference below for remainder of encounter information) Critical Care Time Organ system(s): GI, respiratory. Intervention: Assessment of the patient, interpretation of studies, communication related to patient care. Time: 30 minutes were spent directly related to patient care exclusive of separately billed procedures. throat Pain Score (Numeric/FACES): 6 - Related Data Allergies Allergy/AdvReac Type Severity Reaction Status Date / Time diphenhydramine HCl Allergy Hives Verified 02/03/18 20:57 [From Benadryl] Penicillins Allergy Hives Verified 02/03/18 20:57 Home Meds: Home Meds allopurinoL [Zyloprim] 300 mg PO DAILY 08/12/17 [History] Esomeprazole Magnesium [Nexium] 40 mg PO DAILY 06/27/19 [History] Metoprolol Succinate [Toprol XL] 25 mg PO DAILY 06/27/19 [History] Triamterene/Hydrochlorothiazid [Dyazide 37.5-25 Capsule] 1 tab PO DAILY [History] Past Medical History - Past Health History Medical/Surgical History: Denies Medical/Surgical History HEENT History: Reports: Other (See Below) Other HEENT History: wears glasses Cardiovascular History: Reports: None Respiratory History: Reports: None Gastrointestinal History: Reports: Chronic Diarrhea, GERD Genitourinary History: Reports: None Musculoskeletal History: Reports: Gout Neurological History: Reports: None Psychiatric History: Reports: Anxiety Endocrine/Metabolic History: Reports: Obesity/BMI 30+ Hematologic History: Reports: None Dermatologic History: Reports: None - Infectious Disease History Infectious Disease History: Reports: Chicken Pox - Past Surgical History HEENT Surgical History: Reports: Adenoidectomy, Tonsillectomy Other HEENT Surgeries/Procedures: laryngoscopy 06/26/2019 Respiratory Surgical History: Reports: None GI Surgical History: Reports: Cholecystectomy Social & Family History - Family History Family Medical History: Noncontributory - Tobacco Use Smoking Status *Q: Former Smoker Used Tobacco, but Quit: Yes Month/Year Tobacco Last Used: 2014 - Caffeine Use Caffeine Use: Reports: Soda - Recreational Drug Use Recreational Drug Use: No ED ROS GENERAL - Review of Systems Review Of Systems: See Below ED EXAM, GENERAL - Physical Exam Exam: See Below Course - Vital Signs Last Recorded V/S: Last Vital Signs Temp 36.8 C 06/27/19 23:19 Pulse 106 H 06/27/19 23:19 Resp 18 06/27/19 23:19 BP 134/82 06/27/19 23:19 Pulse Ox 97 06/27/19 23:19 - Orders/Labs/Meds Orders: Active Orders 24 hr Category Date Time Status RT Aerosol Therapy [RC] ASDIRECTED Care 06/27/19 22:55 Active CULTURE BLOOD [BC] Stat Lab 06/27/19 22:55 Received CULTURE BLOOD [BC] Stat Lab 06/27/19 23:05 Received HYDROmorphone [Dilaudid] Med 06/27/19 21:11 Active 0.5 - 1 mg IVPUSH Q1H PRN Sodium Chloride 0.9% Med 06/27/19 22:55 Active 3 ml INH ASDIRECTED PRN Vancomycin 1.5 gm Med 06/27/19 22:49 Active Sodium Chloride 0.9% [Normal Saline] 500 ml IV ONETIME Blood Culture x2 Reflex Set [OM.PC] Stat Oth 06/27/19 22:44 Ordered Medication Orders Hydromorphone HCl (Dilaudid) 0.5 - 1 mg IVPUSH Q1H PRN PRN Reason: Pain Last Admin: 06/27/19 23:14 Dose: 0.5 mg Vancomycin HCl 1.5 gm/ Sodium (Chloride) 500 mls @ 333 mls/hr IV ONETIME ONE Stop: 06/28/19 00:19 Sodium Chloride (Sodium Chloride 0.9%) 3 ml INH ASDIRECTED PRN PRN Reason: mix with racepinephrine neb Labs: Laboratory Tests 06/27/19 06/27/19 Range/Units 21:22 21:22 WBC 13.50 H (4.0-11.0) K/uL RBC 5.49 (4.50-5.90) M/uL Hgb 18.2 H (13.0-17.0) g/dL Hct 51.7 H (38.0-50.0) % MCV 94.2 (80.0-98.0) fL MCH 33.2 H (27.0-32.0) pg MCHC 35.2 (31.0-37.0) g/dL RDW Std Deviation 42.1 (28.0-62.0) fl RDW Coeff of William 12 (11.0-15.0) % Plt Count 169 (150-400) K/uL MPV 12.30 H (7.40-12.00) fL Neut % (Auto) 72.6 (48.0-80.0) % Lymph % (Auto) 17.0 (16.0-40.0) % Coffey % (Auto) 10.1 (0.0-15.0) % Eos % (Auto) 0.1 (0.0-7.0) % Baso % (Auto) 0.2 (0.0-1.5) % Neut # (Auto) 9.8 H (1.4-5.7) K/uL Lymph # (Auto) 2.3 (0.6-2.4) K/uL Coffey # (Auto) 1.4 H (0.0-0.8) K/uL Eos # (Auto) 0.0 (0.0-0.7) K/uL Baso # (Auto) 0.0 (0.0-0.1) K/uL Nucleated RBC % 0.0 /100WBC Nucleated RBCs # 0 K/uL Sodium 142 (136-148) mmol/L Potassium 3.4 L (3.5-5.1) mmol/L Chloride 104 (98-107) mmol/L Carbon Dioxide 29.4 (21.0-32.0) mmol/L BUN 20 H (7.0-18.0) mg/dL Creatinine 1.2 (0.8-1.3) mg/dL Est Cr Clr Drug Dosing 84.49 mL/min Estimated GFR (MDRD) > 60.0 ml/min Glucose 92 (74-106) mg/dL Calcium 9.4 (8.5-10.1) mg/dL Meds: Medications Generic Name Dose Route Start Last Admin Trade Name Freq PRN Reason Stop Dose Admin Hydromorphone HCl 0.5 - 1 mg 06/27/19 21:11 06/27/19 23:14 Dilaudid IVPUSH 0.5 mg Q1H PRN Administration Pain Vancomycin HCl 1.5 gm/ Sodium 500 mls @ 333 mls/hr 06/27/19 22:49 Chloride IV 06/28/19 00:19 ONETIME ONE Sodium Chloride 3 ml 06/27/19 22:55 Sodium Chloride 0.9% INH ASDIRECTED PRN mix with racepinephrine neb Discontinued Medications Generic Name Dose Route Start Last Admin Trade Name Freq PRN Reason Stop Dose Admin Al Hydroxide/Mg Hydroxide 15 0 ml 06/27/19 21:10 06/27/19 21:19 ml/ Lidocaine HCl 5 ml PO 06/27/19 21:11 1 each ONETIME ONE Administration Dexamethasone 10 mg 06/27/19 22:45 06/27/19 23:05 Dexamethasone IVPUSH 06/27/19 22:46 10 mg ONETIME ONE Administration Sodium Chloride 1,000 mls @ 1,000 mls/hr 06/27/19 21:35 06/27/19 22:24 Normal Saline IV 06/27/19 22:34 1,000 mls/hr .Bolus ONE Administration Cefepime HCl 2 gm/ Premix 50 mls @ 100 mls/hr 06/27/19 22:45 06/27/19 23:08 IV 06/27/19 23:14 100 mls/hr ONETIME ONE Administration Iopamidol 100 ml 06/27/19 22:06 06/27/19 22:07 Isovue-370 (76%) IVPUSH 06/27/19 22:07 100 ml ONETIME ONE Administration Racepinephrine 0.5 ml 06/27/19 22:55 06/27/19 23:04 S-2 2.25% NEB 06/27/19 22:56 0.5 ml ONETIME ONE Administration Vancomycin HCl Confirm 06/27/19 22:55 Vancocin Administered 06/27/19 22:56 Dose 1 gm .ROUTE .STK-MED ONE Departure - Departure Time of Disposition: 23:25 Disposition: DC/Tfer to Other 70 Clinical Impression: Epiglottitis - Discharge Information Referrals: Jey Shepherd MD [Primary Care Provider] - Sepsis Event Note - Evaluation Sepsis Screening Result: No Definite Risk - Focused Exam Vital Signs: Vital Signs Temp Pulse Resp BP Pulse Ox 06/27/19 23:19 36.8 C 106 H 18 134/82 97 06/27/19 20:59 36.6 C 107 H 16 144/81 H 96 Date Exam was Performed: 06/27/19 Time Exam was Performed: 23:24 - My Orders Last 24 Hours: My Active Orders 06/27/19 21:11 HYDROmorphone [Dilaudid] 0.5 - 1 mg IVPUSH Q1H PRN 06/27/19 22:44 Blood Culture x2 Reflex Set [OM.PC] Stat 06/27/19 22:49 Vancomycin 1.5 gm Sodium Chloride 0.9% [Normal Saline] 500 ml IV ONETIME 06/27/19 22:55 RT Aerosol Therapy [RC] ASDIRECTED CULTURE BLOOD [BC] Stat Sodium Chloride 0.9% 3 ml INH ASDIRECTED PRN 06/27/19 23:05 CULTURE BLOOD [BC] Stat - Assessment/Plan Last 24 Hours: My Active Orders 06/27/19 21:11 HYDROmorphone [Dilaudid] 0.5 - 1 mg IVPUSH Q1H PRN 06/27/19 22:44 Blood Culture x2 Reflex Set [OM.PC] Stat 06/27/19 22:49 Vancomycin 1.5 gm Sodium Chloride 0.9% [Normal Saline] 500 ml IV ONETIME 06/27/19 22:55 RT Aerosol Therapy [RC] ASDIRECTED CULTURE BLOOD [BC] Stat Sodium Chloride 0.9% 3 ml INH ASDIRECTED PRN 06/27/19 23:05 CULTURE BLOOD [BC] Stat
== END 2019-06-28 01:20 | disposition other institution (70) ==
LOC: MW.ED 20:42
DX: J05.10 Acute epiglottitis without obstruction (principal); K21.9 Gastro-esophageal reflux disease without esophagitis; M10.9 Gout, unspecified; E66.9 Obesity, unspecified; Z68.32 Body mass index [BMI] 32.0-32.9, adult; Z79.899 Other long term (current) drug therapy; Z87.891 Personal history of nicotine dependence
CPT/HCPCS: 36415; 70491; 80048; 85025; 87040; 94640; 96361; 96365; 96367; 96375; 99285; A9270; J0692; J1100; J1170; J3370; J7030; J7040; Q9967

== ENCOUNTER 2020-12-31 08:43 | Emergency (ER) | payer BC ==
--- NOTE | 2020-12-31 09:08 | EDM.PDOC ---
ED HPI GENERAL MEDICAL PROBLEM - General Chief Complaint: Abdominal Pain Stated Complaint: PAIN UNDER RIGHT RIB CAGE Time Seen by Provider: 12/31/20 08:54 - History of Present Illness INITIAL COMMENTS - FREE TEXT/NARRATIVE: History of present illness: [] The patient has pain in the right anterior rib cage. It happens suddenly and is quite sharp. It happens fairly frequently. It happens when he takes a deep breath. It does not happen if he gets out of breath or exerts himself unless he takes a really deep breath. He has had a cough with heavy phlegm every morning for more than a couple of weeks. He has not had any recent change in his environment. He does not have any fever chills weakness or systemic signs of infection. He is not been vaccinated for COVID-19 only because he has not had a chance. He does not object to it. The patient is a former smoker. Takes blood pressure medicine and allopurinol for gout. This patient was seen and evaluated during the 2019 SARS-CoV-2 novel coronavirus pandemic period. Community viral transmission is ongoing at time of this encounter and the emergency department is operating under pandemic response procedures. Review of systems: As per history of present illness and below otherwise all systems reviewed and negative. Past medical history: As per history of present illness and as reviewed below otherwise noncontributory. Surgical history: As per history of present illness and as reviewed below otherwise noncontributory. Social history: No reported history of drug or alcohol abuse. Family history: As per history of present illness and as reviewed below otherwise noncontributory. Physical exam: Constitutional - well developed, well-nourished and in no acute distress HEENT - normocephalic, no evidence of trauma - external nose and mouth normal - no mass in neck and no JVD - mucosae moist EYES - full EOM, PERRL, no icterus - no evidence of inflammation, injection, or drainage Respiratory -tenderness in the right anterior chest wall between the mid clavicular line in the anterior axillary line without crepitation and there is no rash. No respiratory distress, equal bilateral expansion, lungs clear to auscultation and no abnormal lung sounds Cardiovascular - Regular Rhythm with S1 and S2 appreciated and no murmur, gallop or rub. GI - abdomen soft without distension or organomegaly - normal bowel sounds - no guard or rebound Musculoskeletal no gross deformity of long bones or joints - no tenderness, swelling or edema Neurologic - Alert and oriented times four - CN II-XII grossly intact - motor sensory and coordination symmetrically normal Psychiatric - appropriate mood and affect with normal thought content Hematologic - No petechiae or purpura - mucosa appropriate color and sclera not pale - normal nail bed color and refill Integument - no rash or evidence of trauma - normal turgor Diagnostics: [] Therapeutics: [] Impression: [] Plan: [] Definitive disposition and diagnosis as appropriate pending reevaluation and review of above. Treatments [employer]: Reports: NSAIDS Other Treatments [employer]: ibuprofen and 0730 right rib area Pain Score (Numeric/FACES): 6 - Related Data Allergies Allergy/AdvReac Type Severity Reaction Status Date / Time diphenhydramine HCl Allergy Hives Verified 12/31/20 08:57 [From Benadryl] Penicillins Allergy Hives Verified 12/31/20 08:57 Home Meds: Home Meds allopurinoL [Zyloprim] 300 mg PO DAILY 08/12/17 [History] Esomeprazole Magnesium [Nexium] 40 mg PO DAILY 06/27/19 [History] Metoprolol Succinate [Toprol XL] 25 mg PO DAILY 06/27/19 [History] Triamterene/Hydrochlorothiazid [Dyazide 37.5-25 Capsule] 1 tab PO DAILY 06/27/19 [History] methylPREDNISolone [Medrol Dose Pack] 4 mg PO DAILY #21 tab 12/31/20 [Rx] Past Medical History - Past Health History Medical/Surgical History: Denies Medical/Surgical History HEENT History: Reports: Other (See Below) Other HEENT History: wears glasses Cardiovascular History: Reports: Hypertension Respiratory History: Reports: None Gastrointestinal History: Reports: Chronic Diarrhea, GERD Genitourinary History: Reports: None Musculoskeletal History: Reports: Gout Neurological History: Reports: None Psychiatric History: Reports: Anxiety Endocrine/Metabolic History: Reports: Obesity/BMI 30+ Hematologic History: Reports: None Immunologic History: Reports: None Oncologic (Cancer) History: Reports: None Dermatologic History: Reports: None - Infectious Disease History Infectious Disease History: Reports: Chicken Pox - Past Surgical History Head Surgeries/Procedures: Reports: None HEENT Surgical History: Reports: Adenoidectomy, Tonsillectomy Other HEENT Surgeries/Procedures: laryngoscopy 06/26/2019 Respiratory Surgical History: Reports: None GI Surgical History: Reports: Cholecystectomy Social & Family History - Family History Family Medical History: No Pertinent Family History - Tobacco Use Tobacco Use Status *Q: Former Tobacco User Used Tobacco, but Quit: Yes Month/Year Tobacco Last Used: 6 years - Caffeine Use Caffeine Use: Reports: None - Alcohol Use Days Per Week of Alcohol Use: 2 Number of Drinks Per Day: 2 Total Drinks Per Week: 4 - Recreational Drug Use Recreational Drug Use: No ED ROS GENERAL - Review of Systems Review Of Systems: Comprehensive ROS is negative, except as noted in HPI. ED EXAM, GENERAL - Physical Exam Exam: See Below Free Text/Narrative:: My physical exam is in the HPI Course - Vital Signs Text/Narrative:: 10:14 AM patient is improved 10 minutes after receiving Toradol. Medrol Dosepak sent to the pharmacy. Discharged in satisfactory condition Last Recorded V/S: Last Vital Signs Temp 35.6 C L 12/31/20 09:57 Pulse 88 12/31/20 09:57 Resp 16 12/31/20 09:57 BP 123/86 12/31/20 09:57 Pulse Ox 95 12/31/20 09:57 - Orders/Labs/Meds Orders: Active Orders 24 hr Category Date Time Status Chest 2V [CR] Stat Exams 12/31/20 09:06 Taken Meds: Medications Discontinued Medications Generic Name Dose Route Start Last Admin Trade Name Lawrence PRN Reason Stop Dose Admin Ketorolac Tromethamine 30 mg 12/31/20 09:44 12/31/20 09:55 Ketorolac 30 Mg/Ml Sdv IM 12/31/20 09:45 30 mg ONETIME ONE Administration Departure - Departure Time of Disposition: 10:14 Disposition: Home, Self-Care 01 Condition: Good Clinical Impression: Pleurisy - Discharge Information Prescriptions: methylPREDNISolone [Medrol Dose Pack] 4 mg PO DAILY #21 tab Instructions: Pleurisy Referrals: Jey Shepherd MD [Primary Care Provider] - Forms: ED Department Discharge Additional Instructions: Return if fever significant increase in cough or failure to improve. [facility] - Primary Care [address] [place] [address] [id number] [address] [id number] The following information is given to patients seen in the emergency department who are being discharged to home. This information is to outline your options for follow-up care. We provide all patients seen in our emergency department with a follow-up referral. The need for follow-up, as well as the timing and circumstances, are variable depending upon the specifics of your emergency department visit. If you don't have a primary care physician on staff, we will provide you with a referral. We always advise you to contact your personal physician following an emergency department visit to inform them of the circumstance of the visit and for follow-up with them and/or the need for any referrals to a consulting specialist. The emergency department will also refer you to a specialist when appropriate. This referral assures that you have the opportunity for follow-up care with a specialist. All of these measure are taken in an effort to provide you with optimal care, which includes your follow-up. Under all circumstances we always encourage you to contact your private physician who remains a resource for coordinating your care. When calling for follow-up care, please make the office aware that this follow-up is from your recent emergency room visit. If for any reason you are refused follow-up, please contact the [facility] Emergency Department at and asked to speak to the emergency department charge nurse. Sepsis Event Note (ED) - Evaluation Sepsis Screening Result: No Definite Risk - Focused Exam Vital Signs: Vital Signs Temp Pulse Resp BP Pulse Ox 12/31/20 09:57 35.6 C L 88 16 123/86 95 12/31/20 08:54 36.7 C 100 18 146/94 H 96 - My Orders Last 24 Hours: My Active Orders 12/31/20 09:06 Chest 2V [CR] Stat - Assessment/Plan Last 24 Hours: My Active Orders 12/31/20 09:06 Chest 2V [CR] Stat
[2020-12-31] MEDS ORDERED: Ketorolac 30 MG/ML SDV IM ONE (09:44)
--- NOTE | 2020-12-31 10:17 | CR ---
INDICATION: Right anterior rib cage pain TECHNIQUE: Chest 1 views COMPARISON: November 03, 2018 FINDINGS: Cardiovascular and mediastinum: Heart size and vasculature are normal in caliber and appearance. Lungs and pleural spaces: Lungs are clear. No sign of infiltrate or mass. No sign of pleural effusion. No pneumothorax. Bones and soft tissues: No significant findings. IMPRESSION: Negative chest. No significant change from the prior exam. Dictated by Chase Eaton MD @ 12/31/2020 10:15:[address] Chase Eaton @ Dec 31 2020 10:15AM
== END 2020-12-31 10:28 | disposition home or self-care (01) ==
LOC: MW.ED 08:43
DX: R09.1 Pleurisy (principal); I10 Essential (primary) hypertension; K21.9 Gastro-esophageal reflux disease without esophagitis; E66.9 Obesity, unspecified; Z68.33 Body mass index [BMI] 33.0-33.9, adult; Z87.891 Personal history of nicotine dependence; Z88.0 Allergy status to penicillin; Z88.8 Allergy status to other drugs, medicaments and biological substances; Z79.899 Other long term (current) drug therapy
CPT/HCPCS: 71046; 96372; 99283; J1885

== ENCOUNTER 2024-12-04 04:25 | Emergency (ER) | payer BC ==
[2024-12-04 04:40] LABS: BASOPHILS ABSOLUTE AUTO 0.07 K/uL (0.00-0.20); BASOPHILS PERCENT AUTO 1.0 % (0.0-1.0); EOSINOPHILS ABSOLUTE AUTO 0.17 K/uL (0.00-0.45); EOSINOPHILS PERCENT AUTO 2.4 % (0.0-6.0); IMMATURE GRAN ABSOLUTE AUTO 0.01 K/uL (0.00-0.05); IMMATURE GRAN PERCENT AUTO 0.1 % (0.0-0.4); LYMPHOCYTES ABSOLUTE AUTO 3.33 K/uL (1.00-4.80); LYMPHOCYTES PERCENT AUTO 47.8 % (24.0-44.0); MEAN PLATELET VOLUME 11.7 fL (9.4-12.4); MONOCYTES ABSOLUTE AUTO 0.76 K/uL (0.00-0.80); MONOCYTES PERCENT AUTO 10.9 % (0.0-8.0); NEUTROPHILS ABSOLUTE AUTO 2.62 K/uL (1.80-7.70); NEUTROPHILS PERCENT AUTO 37.8 % (41.0-71.0); NRBC ABSOLUTE 0.00 K/uL (0.00-0.02); NRBC PERCENT 0.0 /100WBC (0.0-0.2); PLATELET COUNT,PLT 163 K/uL (150-400); RED BLOOD CELL COUNT 5.15 M/uL (4.52-5.90); WHITE BLOOD CELL COUNT,WBC 6.96 K/uL (3.9-11.3)
[2024-12-04] MEDS ORDERED: LORazepam 2 MG/ML SDV IVPUSH PRN (04:41)
[2024-12-04 04:51] LABS: INR 0.96 (0.86-1.11); PTT,PARTIAL THROMBOPLSTIN TIME 26.4 SEC (23.9-30.7)
[2024-12-04] MEDS: LORazepam 2 MG/ML SDV IVPUSH ONE (04:55)
[2024-12-04 05:08] LABS: A/G RATIO 0.9 (0.9-1.6); BILIRUBIN TOTAL 0.5 mg/dL (0.2-1.0); BLOOD UREA NITROGEN,BUN 23.0 mg/dL (7.0-18.0); CARBON DIOXIDE,CO2 25.7 mmol/L (21.0-32.0); CHLORIDE,CL 100.0 mmol/L (98-107); CREATININE 1.0 mg/dL (0.8-1.3); EST CRCL DRUG DOSING (CG) 96.32 mL/min; GLUCOSE RANDOM 119.0 mg/dL (74-106); POTASSIUM,K 3.8 mmol/L (3.5-5.1); PRO B-TYPE NATRIUR PEPT,BNPPRO 6.0 pg/mL (0-125); PROTEIN TOTAL,TP 7.4 g/dL (6.4-8.2); SODIUM,NA 138.0 mmol/L (136-148)
[2024-12-04 05:09] LABS: ESTIMATED GFR 95.0 mL/min (>60)
[2024-12-04 05:29] LABS: ALANINE AMINOTRANSFERASE,ALT 62.0 IU/L (14-63)
[2024-12-04 05:43] LABS: ASPARTATE AMNIOTRANSFERASE,AST 41.0 IU/L (15-37)
== END 2024-12-04 06:13 | disposition home or self-care (01) ==
LOC: MW.ED 04:25
DX: R07.89 Other chest pain (principal); F41.9 Anxiety disorder, unspecified; I10 Essential (primary) hypertension; E66.9 Obesity, unspecified; Z88.0 Allergy status to penicillin; Z79.899 Other long term (current) drug therapy; Z68.32 Body mass index [BMI] 32.0-32.9, adult; Z90.49 Acquired absence of other specified parts of digestive tract
CPT/HCPCS: 36415; 71045; 80053; 83690; 83735; 83880; 84484; 85025; 85610; 85730; 93005; 96374; 99285; J2060; 93010; 99283

== ENCOUNTER 2025-02-16 06:30 | Day surgery (SDC) | payer BC ==
[2025-02-16] MEDS: Lactated Ringers 1,000 ML IV SCH (07:10)
[2025-02-16] MEDS ORDERED: propofoL 500 MG/50 ML 50 ML ONE (07:18)
[2025-02-16] MEDS ORDERED: dexmedeTOMIDine HCl 200 MCG/2 ML SDV ONE (07:21)
[2025-02-16] MEDS ORDERED: Propofol 200 MG/20 ML SDV ONE (09:32)
[2025-02-16] MEDS ORDERED: Dexamethasone 4 MG/ML 5 ML MDV ONE (09:45)
== END 2025-02-16 10:20 | disposition home or self-care (01) ==
LOC: MW.SDS 06:30
PROVIDERS: ATTEND Surgery
DX: Z12.11 Encounter for screening for malignant neoplasm of colon (principal); K29.50 Unspecified chronic gastritis without bleeding; K31.89 Other diseases of stomach and duodenum; K31.7 Polyp of stomach and duodenum; K20.0 Eosinophilic esophagitis; K44.9 Diaphragmatic hernia without obstruction or gangrene; I10 Essential (primary) hypertension; E66.9 Obesity, unspecified; Z88.8 Allergy status to other drugs, medicaments and biological substances; Z88.0 Allergy status to penicillin; Z68.33 Body mass index [BMI] 33.0-33.9, adult; Z79.899 Other long term (current) drug therapy; Z87.891 Personal history of nicotine dependence
CPT/HCPCS: 43239; 45378; J1100; J2704; J7120; 00813